=== PATIENT | male | born 1975 | race African-American/Black ===

== ENCOUNTER 2019-05-04 11:56 | Emergency (ER) | payer SELFPAY ==
[2019-05-04] MEDS ORDERED: METOPROLOL TARTRATE INJ 5 MG/5 ML VIAL IV ONE (12:14)
[2019-05-04] MEDS ORDERED: IBUPROFEN 200 MG TAB GT ONE (12:39)
[2019-05-04] MEDS ORDERED: SODIUM CHLORIDE 0.9% 1000ML 1,000 ML IVS ONE (12:41)
[2019-05-04] MEDS ORDERED: PHENYTOIN SODIUM INJ 1,000 MG in SODIUM CHLORIDE 0.9% 100ML 100 ML IVPB ONE (13:02)
--- NOTE | 2019-05-04 13:32 | RAD ---
EXAM: XR Chest, 1 View CLINICAL HISTORY: pna, vent TECHNIQUE: Frontal view of the chest. COMPARISON: No relevant prior studies available. FINDINGS: Limitations: None. Lungs: There is left lower lobe collapse. Pleural space: Small left pleural effusion present. No pneumothorax. Heart: Unremarkable. No cardiomegaly. Mediastinum: Unremarkable. Bones/joints: Unremarkable. Tubes, lines and devices: Tracheostomy terminates 7.3 cm above the ita. IMPRESSION: There is left lower lobe collapse. Consider mucous plugging and/or pneumonia. Electronically signed by: Denae Vazquez MD 05/04/2019 1:31 PM [facility]
[2019-05-04] MEDS ORDERED: SODIUM CHLORIDE 0.9% 100ML 100 ML IVPB ONE ×2 (13:48→15:20)
[2019-05-04] MEDS ORDERED: PHENYTOIN SODIUM INJ 250 MG/5 ML VIAL ONE (13:48)
[2019-05-04] MEDS ORDERED: FLUCONAZOLE 100 MG TAB GT ONE (13:55)
[2019-05-04] MEDS ORDERED: PIPERACILLIN/TAZOBACTAM 3.375 GM in SODIUM CHLORIDE 0.9% 100ML 100 ML IVPB ONE (14:19)
[2019-05-04 14:43] VITALS: TEMP 99.3; O2SAT 100
--- NOTE | 2019-05-04 14:43 | CT ---
PROCEDURE: CT Chest, Abdomen and Pelvis With Intravenous Contrast CLINICAL INDICATION: The patient is 44 years old and is Male; sepsis, vent pt , source uncertain, mild incr.. lft MAIN TECHNIQUE: Axial computed tomography images of the chest, abdomen and pelvis with intravenous contrast. Sagittal and coronal reformatted images were created and reviewed. This CT exam was performed using one or more of the following dose reduction techniques: automated exposure control, adjustment of the mA and/or kV according to patient size, and/or use of iterative reconstruction technique. COMPARISON: Chest x-ray from earlier today. FINDINGS: ARTIFACTS: Patient arm positioning results in beam hardening artifact which degrades image quality. CHEST: LUNGS: There is dense LEFT perihilar and lower lobe consolidation with air bronchograms and enhancement. This spares the lingula. Findings are compatible with pneumonia. On coronal image 108/156 of series 602 and axial image 6/92 of series 3, there is a filling defect within a medial RIGHT lower lobe pulmonary artery branch, likely a 3rd generation branch. Patchy linear atelectasis is identified within the medial RIGHT lower lobe. PLEURAL SPACE: Unremarkable. No significant effusion. No pneumothorax. HEART: Heart is shifted to the LEFT. No significant pericardial effusion. THYROID: Thyroid gland is unremarkable. ABDOMEN: LIVER: Hepatic steatosis is identified. No intrahepatic lesions are noted. GALLBLADDER AND BILE DUCTS: The gallbladder is contracted. No calcified stones. No ductal dilation. PANCREAS: Unremarkable. No ductal dilation. No discrete lesion. No acute leena-pancreatic inflammatory change. SPLEEN: Unremarkable. No splenomegaly. No splenic lesion noted. ADRENALS: Unremarkable. No mass. KIDNEYS AND URETERS: Unremarkable. No hydronephrosis. No solid mass. STOMACH AND BOWEL: There is an abundant amount of stool within the colonic lumen. No obstruction. No mucosal thickening. PELVIS: APPENDIX: The appendix is visualized and is normal in appearance. BLADDER: There is a Christensen catheter decompressing the urinary bladder. REPRODUCTIVE: The prostate gland is enlarged. CHEST, ABDOMEN and PELVIS: INTRAPERITONEAL SPACE: Unremarkable. No significant fluid collection. No free air. BONES/JOINTS: Unremarkable. No acute fracture. No dislocation. SOFT TISSUES: There is a small fat containing umbilical hernia noted. VASCULATURE: See above. LYMPH NODES: LEFT subcarinal lymphadenopathy noted with a 1.4 cm node identified. TUBES, LINES AND DEVICES: There is a tracheostomy tube in place. Percutaneous gastrostomy tube is in place. OTHER FINDINGS: The LEFT hemithorax is small. IMPRESSION: 1. There is dense LEFT perihilar and lower lobe consolidation with air bronchograms and enhancement. This spares the lingula. Findings are compatible with pneumonia. Prominent LEFT subcarinal node. 2. On coronal image 108/156 of series 602 and axial image 6/92 of series 3, there is a filling defect within a medial RIGHT lower lobe pulmonary artery branch, likely a 3rd generation branch. 3. No acute inflammatory process is identified in the abdomen or pelvis. Large amount of colonic stool. Electronically signed by: Balaji Daniel MD 05/04/2019 2:41 PM [employer]ORDER [employer]
[2019-05-04] MEDS ORDERED: ENOXAPARIN SODIUM 100 MG/ML SYG SUBCU ONE (14:53)
[2019-05-04] MEDS ORDERED: methylPREDNISolone SODIUM SUC 125 MG/2 ML VIAL IV ONE (15:10)
[2019-05-04] MEDS ORDERED: PIPERACILLIN/TAZOBACTAM 3.375 GM VIAL IVPB ONE (15:20)
--- NOTE | 2019-05-04 15:38 | ED.PDOC ---
History of Present Illness - General Chief Complaint: Fever Stated Complaint: fever Time Seen by Provider: 05/04/19 12:02 Source: EMS notes reviewed, family, correction records Exam Limitations: clinical condition - History of Present Illness Initial Comments: the patient is a 44-year-old male presenting to the emergency room secondary to fever, increased sputum production in his ET tube, increasing seizure frequency over the last few days. The patient has been recently being treated for a left lower lobe pneumonia with Levaquin, however the patient has been continuing to deteriorate. He has been on that medication approximately 10 days. The patient was febrile upon arrival here. The patient is having tremulous movements which could be construed as chills however family does report that sometimes these movements are actually has seizures. The patient himself is essentially noncommunicative. He does not have purposeful movements of his extremities. Heart rate is elevated into the 150s. He does appear to be oxygenating well on his current ventilator settings. He has been on a prophylactic Lovenox dose. He did receive some when necessary Ativan earlier in the day for a seizure. He also received 5 mg of Valium with EMS before arrival. Family is very helpful. Timing/Duration: unsure Severity: moderate Improving Factors: nothing Worsening Factors: nothing Allergies/Adverse Reactions: Allergies NO KNOWN ALLERGY Allergy (Verified 05/04/19 12:36) Review of Systems - Review of Systems Review of Systems: 05/04/19 15:38 unable to obtain review of systems due to patient's noncommunicative state. Family members have just driven in from out of town so they are unable to give any relevant information for a recent review of systems. By nursing report from the correction he has had increased seizure frequency. Unable to Obtain Due To: clinical condition Past Medical History (General) - Patient Medical History Hx Congestive Heart Failure: No Hx Hypertension: Yes - Social History Hx Tobacco Use: Yes - Activities of Daily Living [facility] (if applicable):: [facility] Family Medical History - Family History Mother Family History: Unknown Physical Exam - Physical Exam General Appearance: Alert, Other - he does have periods of tremulousness as indicated above. In between these episodes he does grimace and indicate displeasure with certain actions. Eye Exam: bilateral normal Ears, Nose, Throat: normal pharynx - ucous membranes are mildly dry. Neck: non-tender - no evidence of grimacing with palpation. Tracheostomy is in place. There is significant purulent secretions from the tracheostomy., supple Respiratory: no respiratory distress, no accessory muscle use, other - bilateral lower lobe rales. Cardiovascular/Chest: normal peripheral pulses, tachycardia - regular tachycardia around 150 bpm., other - trace edema to extremities from disuse. Peripheral Pulses: radial,right: 2+, radial,left: 2+ Gastrointestinal/Abdominal: non tender, soft, other - G-tube is in place. Rectal Exam: deferred Back Exam: no vertebral tenderness Extremity: normal range of motion - passive, no calf tenderness - as best can be assessed, normal capillary refill Neurologic: alert, other - difficult to assess otherwise. He does grimace to pain. Skin Exam: normal color Comments: Vital Signs - 24 hr 05/04/19 05/04/19 05/04/19 11:56 12:05 12:29 Temperature 100.4 F H Pulse Rate [ 155 H left brachial] Respiratory 24 23 Rate Respiratory 18 Rate [Volume Control Data] Blood Pressure 131/64 [left brachial] O2 Sat by Pulse 98 Oximetry 05/04/19 05/04/19 05/04/19 14:00 15:00 15:17 Temperature 99.3 F Pulse Rate [ 115 H 104 H left brachial] Respiratory 18 18 Rate Respiratory 18 Rate [Volume Control Data] Blood Pressure 130/80 121/86 [left brachial] O2 Sat by Pulse 100 100 Oximetry Progress - Progress Progress: 05/04/19 15:43 the patient is a 44-year-old -[place] male presenting to the emergency room with what appears to be sepsis. He has elevated white blood cell count of 22,000 with 15% bands, heart rate in the 150s and a fever. The source does appear to be very dense left lower lobe pneumonia that appears to be refractory to Levaquin. He is actually ventilating well on his current settings. The patient has responded positively to the IV fluids with his heart rate coming down to the 110s. He has also received a dose of Motrin for the fever. He has been started on vancomycin and Zosyn. blood and sputum cultures have been done. he has received a dose of IV Solu-Medrol. the patient also has a right midlung pulmonary embolus. He will need to have Dopplers performed at the receiving facility as we do not have ultrasound here. He has been given a treatment dose of Lovenox. He was on the prophylactic dose prior. The patient was also having increasing seizure frequency with his epilepsy. His Dilantin level was subtherapeutic. He has been loaded with Dilantin here and is no longer seizing. This will need to be followed of course. the patient also did have some yeast in his urine and has received a dose of Diflucan. Christensen catheter will remain in place. Family has been helpful and knowledgeable. All questions have been answered. transferring for specialty and higher level of care. Critical care time spent is 45 minutes excluding otherwise billable procedures. feliciano [email or web address] [phone] - Results/Orders Results/Orders: chest x-ray shows left lower lobe consolidation versuscollapse. CT scan of the chest abdomen and pelvis with IV contrast shows a small right mid lung pulmonary embolus. He does have dense consolidation of the left lower lobe. No definite bronchial plugging. See report for details. EKG shows sinus tachycardia versus atrial flutter at 154 bpm. Slow R-wave progression in anterior leads. No definitive ST segment or T-wave changes indicative of acute ischemia otherwise. Normal QT interval. Normal axis. Laboratory Tests 05/04/19 05/04/19 05/04/19 12:18 12:18 12:18 WBC 22.9 H* RBC 3.84 L Hgb 10.4 L Hct 32.6 L MCV 84.9 MCH 27.2 MCHC 32.0 L RDW 15.6 H Plt Count 403 H MPV 7.5 Absolute Neuts (auto) 18.00 H Absolute Lymphs (auto) 3.20 Absolute Monos (auto) 1.30 H Absolute Eos (auto) 0.20 Absolute Basos (auto) 0.10 Neutrophils % 79.0 H Neutrophils % (Manual) 70.0 Lymphocytes % 14.0 L Lymphocytes % (Manual) 15.0 Monocytes % 5.8 Monocytes % (Manual) 0.0 Eosinophils % 0.7 L Basophils % 0.5 Band Neutrophils 15.0 H* Eosinophils 0.0 Basophils 0.0 Platelet Estimate Increased PT 10.6 INR 1.06 PTT (SP) 27.8 Sodium 135 Potassium 3.7 Chloride 97 L Carbon Dioxide 25 Anion Gap 16.7 BUN 11 Creatinine 0.49 L BUN/Creatinine Ratio 22.4 H Random Glucose 120 H Serum Osmolality 270.7 L Lactic Acid Calcium 8.7 Magnesium 1.8 Total Bilirubin 0.4 AST 43 H ALT 84 H Alkaline Phosphatase 206 H Creatine Kinase 23 L CK-MB (CK-2) 0.5 CK-MB (CK-2) % Not Reportable Troponin I < 0.02 B-Natriuretic Peptide 7.3 Serum Total Protein 7.2 Albumin 2.5 L Globulin 4.7 H Albumin/Globulin Ratio 0.5 L TSH 1.34 Urine Color Urine Appearance Urine pH Ur Specific Grover Urine Protein Urine Glucose (UA) Urine Ketones Urine Blood Urine Nitrite Urine Bilirubin Urine Urobilinogen Ur Leukocyte Esterase Urine RBC Urine WBC Ur Epithelial Cells Urine Bacteria Urine Yeast Phenytoin 4.4 L 05/04/19 05/04/19 12:18 12:36 WBC RBC Hgb Hct MCV MCH MCHC RDW Plt Count MPV Absolute Neuts (auto) Absolute Lymphs (auto) Absolute Monos (auto) Absolute Eos (auto) Absolute Basos (auto) Neutrophils % Neutrophils % (Manual) Lymphocytes % Lymphocytes % (Manual) Monocytes % Monocytes % (Manual) Eosinophils % Basophils % Band Neutrophils Eosinophils Basophils Platelet Estimate PT INR PTT (SP) Sodium Potassium Chloride Carbon Dioxide Anion Gap BUN Creatinine BUN/Creatinine Ratio Random Glucose Serum Osmolality Lactic Acid 2.2 Calcium Magnesium Total Bilirubin AST ALT Alkaline Phosphatase Creatine Kinase CK-MB (CK-2) CK-MB (CK-2) % Troponin I B-Natriuretic Peptide Serum Total Protein Albumin Globulin Albumin/Globulin Ratio TSH Urine Color Yellow Urine Appearance Sl cloudy Urine pH 6.0 Ur Specific Grover 1.025 Urine Protein 30 Urine Glucose (UA) Negative Urine Ketones Negative Urine Blood Small H Urine Nitrite Negative Urine Bilirubin Negative Urine Urobilinogen 0.2 Ur Leukocyte Esterase Moderate H Urine RBC 0 Urine WBC 10-20 H Ur Epithelial Cells 0 Urine Bacteria Rare Urine Yeast 2+ budding Phenytoin Departure - Departure Clinical Impression: Ventilator associated pneumonia, Fungal colonization of urinary tract Sepsis Qualifiers: Sepsis type: sepsis due to unspecified organism Sepsis acute organ dysfunction status: with acute organ dysfunction Severe sepsis acute organ dysfunction type: unspecified Severe sepsis shock status: without septic shock Qualified Code(s): A41.9 - Sepsis, unspecified organism; R65.20 - Severe sepsis without septic shock Left lower lobe pneumonia Qualifiers: Pneumonia type: due to unspecified organism Qualified Code(s): J18.9 - Pneumonia, unspecified organism Epilepsy Qualifiers: Epilepsy type: other generalized Intractability: intractable Status epilepticus: without status epilepticus Qualified Code(s): G40.419 - Other generalized epilepsy and epileptic syndromes, intractable, without status epilepticus Disposition: Transfer to Hospital Departure Forms: ED Discharge - Pt. Copy, Patient Portal Self Enrollment Transfer to Outside Facility - Transfer Information Decision to Transfer Date: 05/04/19 Decision to Transfer Time: 15:30 Reason for Transfer: ICU Accepting Provider:: dr miles Accepting Facility: [facility]
[2019-05-04] MEDS ORDERED: VANCOMYCIN HCL INJ 1,000 MG, VANCOMYCIN HCL INJ 500 MG in SODIUM CHLORIDE 0.9% 250ML 25... IVPB ONE (15:49)
[2019-05-04] MEDS ORDERED: VANCOMYCIN HCL INJ 500 MG VIAL ONE (16:12)
[2019-05-04] MEDS ORDERED: VANCOMYCIN HCL INJ 1,000 MG VIAL IVPB ONE (16:12)
[2019-05-04] MEDS ORDERED: SODIUM CHLORIDE 0.9% 250ML 250 ML ONE (16:13)
[2019-05-04 18:34] VITALS: BP 126/75
== END 2019-05-04 17:00 | disposition short-term general hospital (02) ==
LOC: ER 11:56
DX: J95.851 Ventilator associated pneumonia (principal); R65.20 Severe sepsis without septic shock; B37.41 Candidal cystitis and urethritis; G40.419 Other generalized epilepsy and epileptic syndromes, intractable, without status epilepticus; I26.99 Other pulmonary embolism without acute cor pulmonale; I10 Essential (primary) hypertension; Z99.11 Dependence on respirator [ventilator] status; Z79.899 Other long term (current) drug therapy
CPT/HCPCS: 36415; 71045; 71260; 74177; 80053; 80177; 80185; 81001; 82550; 82553; 83605; 83735; 83880; 84443; 84484; 85025; 85610; 85730; 87040; 87086; 87205; 87502; 93005; 94002; 94640; J1650; J2543; J2930; J3370; J7030; J7050

== ENCOUNTER 2019-05-20 20:33 | Emergency (ER) | payer SELFPAY ==
[2019-05-20] MEDS ORDERED: SODIUM CHLORIDE 0.9% 1000ML 1,000 ML IVS ONE ×2 (20:59→22:38)
--- NOTE | 2019-05-20 21:10 | ED.PDOC ---
History of Present Illness - General Chief Complaint: Neuro Symptoms/Deficits Stated Complaint: Right hand tremors Time Seen by Provider: 05/20/19 20:58 Additional Information: The patient is a 44-year-old male who is ventilator dependent residing in a senior care who presents to the ED with chief complaint per senior care staff of possible seizure. By report patient was noted to have shaking to his right hand and this was perceived by a new nurse working on [employer] at the senior care as possible seizure activity and patient was sent to the ED. EMS who brought patient to the ED indicates that senior care staff told him that criss ceron is a bug going around at the senior care and several residents are ill with respiratory symptoms. History is otherwise unknown. - History of Present Illness Allergies/Adverse Reactions: Allergies NO KNOWN ALLERGY Allergy (Verified 05/04/19 12:36) Review of Systems - Review of Systems Unable to Obtain Due To: condition Past Medical History (General) - Patient Medical History Hx Seizures: Yes Hx Cardiac Disorders: Yes - tachycardia Hx Congestive Heart Failure: No Hx Hypertension: Yes - Vaccination History Immunizations Up to Date: Yes - Social History Hx Tobacco Use: Yes - Activities of Daily Living Intermediate/Assisted Living (if applicable):: [facility] - Triage Comment ED Triage Comment: Vent dependent pt who was sent for eval due to rt hand tremors. Family Medical History - Family History Mother Family History: Unknown Physical Exam - Physical Exam General Appearance: Ill Appearing, Other - patient is bedbound and ventilator dependent. Not interact with his environment. Eye Exam: bilateral other - patient's eyes do not track. No nystagmus is noted. ENT Exam: other - mucous membranes are dry Neck: other - patient tracheostomy is in patient's anterior neck. Respiratory: lungs clear, normal breath sounds, no respiratory distress Cardiovascular/Chest: no gallop, no JVD, no murmur, tachycardia Gastrointestinal/Abdominal: normal bowel sounds, non tender, soft Mental Status: other - patient's eyes are open. Patient is nonverbal and makes no noises. Patient does not react to deep sternal rub. Patient with perpetual grimacing movements to face. Patient does not move his extremities and his arms are extended and rigid. Skin Exam: warm/dry Progress - Progress Progress: 05/20/19 21:18 Differential diagnosis includes but is not limited to seizure activity, SVT, atrial fibrillation, sepsis. 05/20/19 21:18 Patient's history and exam are very confusing. Patient with rhythmic movement of face which may be status epilepticus. However nurse who is in the ED and pending for patient indicates that she knows patient well and says that his facial expressions are not unusual for him and she believes he is at his baseline. Patient is extremely tachycardic in the 150s and the nurse indicates that patient is always tachycardic when he comes to the ED with rates in the 130s to 150s. The rigidity of the patient's arms may be seizure activity but it also may be contractures in this bedbound senior care patient who gets very little physical therapy. Will give Ativan and perform a sepsis and cardiac workup and reassessed. 05/20/19 21:21 EKG read: sinus tachycardia rate 160, nl axis, nl QRS, nl ST segments, nl T waves. Negative STEMI. EKG read by Sadi Lincoln MD. Patient is not in atrial fibrillation and I will treat for SVT. 05/20/19 22:17 Patient had very transient response to adenosine. His heart rate went from 160s down to approximately 100 for a few beats and then went back up to 160. Will give Cardizem and reevaluate. 05/21/19 01:01 Patient's heart rate came down slightly to the 140s after Cardizem bolus. Patient's CTs show continued by basilar consolidation confirming that recurrent pneumonia is the source of patient's symptoms. His tachycardia is not from cardiac dysrhythmia but from sepsis. IV Zosyn and vancomycin has been given along with sepsis fluid bolus. patient's thyroid studies are normal and he is not suffering from thyroid storm. His d-dimer is elevated but his CT chest does not show evidence of PE. is now in the room and she indicates that patient was recently discharged from [facility] with a pneumonia. She requested patient be transferred back to [facility]. Patient is stable and medically clear for transfer when accepted. 05/21/19 01:[address] Holman, hospitalist at [facility], who accepts patient in transfer. Departure - Departure Clinical Impression: Severe sepsis without septic shock, Pneumonia, unspecified organism, Candidiasis UTI (urinary tract infection) Qualifiers: Urinary tract infection type: site unspecified Hematuria presence: without hematuria Qualified Code(s): N39.0 - Urinary tract infection, site not specified Disposition: Transfer to Hospital Condition: Fair Transfer to Outside Facility - Transfer Information Decision to Transfer Date: 05/21/19 Decision to Transfer Time: 01:04 Reason for Transfer: family request
[2019-05-20] MEDS ORDERED: ADENOSINE INJ 6 MG/2 ML SYG IV ONE ×2 (21:23→22:01)
--- NOTE | 2019-05-20 21:39 | RAD ---
EXAM: Chest,1 View HISTORY: Tachycardia COMPARISON: Chest one view 05/04/2019 CT chest 05/04/2019 TECHNIQUE: Chest one view portable AP supine FINDINGS: Patient is mildly leftward rotated. Heart size within normal limits. Mild bilateral perihilar interstitial lung prominence. Moderate-sized dense left lower lung field opacity reidentified. No significant pleural effusion or pneumothorax. No acute fracture. Tracheostomy tube in place. Right-sided port catheter tip overlies SVC/RA junction. IMPRESSION: 1. Moderate-sized dense left lower lung field opacity appears mildly less prominent. This may represent left basilar atelectasis/volume loss and/or consolidation. If not already performed, bronchoscopy may provide more information. 2. Mild bilateral perihilar interstitial lung prominence. Causes include asthma, bronchitis, interstitial infection, viral infection, and interstitial pulmonary edema. 3. Tracheostomy tube and right-sided port catheter remain in place. 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
[2019-05-20] MEDS ORDERED: PIPERACILLIN/TAZOBACTAM 3.375 GM in SODIUM CHLORIDE 0.9% 100ML 100 ML IVPB ONE (22:36)
[2019-05-20] MEDS ORDERED: FLUCONAZOLE IV 200 MG in PREMIX BAG 1 BAG IVPB ONE (22:37)
[2019-05-20] MEDS ORDERED: VANCOMYCIN HCL INJ 1,000 MG, VANCOMYCIN HCL INJ 500 MG in SODIUM CHLORIDE 0.9% 250ML 25... IVPB ONE (22:40)
[2019-05-20] MEDS ORDERED: PIPERACILLIN/TAZOBACTAM 3.375 GM VIAL IVPB ONE (23:05)
[2019-05-20] MEDS ORDERED: SODIUM CHLORIDE 0.9% 100ML 100 ML IVPB ONE (23:05)
--- NOTE | 2019-05-20 23:45 | CT ---
PROCEDURE: CT Abdomen/Pelvis w/Contrast (accession [id number]), CTA Chest (accession [id number]) CLINICAL HISTORY: 44 years Male sepsis TECHNIQUE: Contiguous axial images obtained through the chest during the rapid administration of intravenous contrast. Coronal, sagittal, and MIP reformatted images provided. Contiguous axial images acquired through the abdomen and pelvis after the administration of intravenous contrast. Coronal and sagittal reformatted images also provided. This CT exam was performed according to our departmental dose-optimization program, which includes one or more of the following dose reduction techniques: automated exposure control, adjustment of the mA and/or kV according to patient size, and/or use of iterative reconstruction technique. COMPARISON: Comparison is made with the prior examinations dated 05/04/2019 FINDINGS: Tracheostomy tube again noted. Evaluation of the pulmonary arteries is limited by patient motion. No visualized pulmonary embolus. Left perihilar and left lower lobe dense airspace infiltrates again noted. Dependent right lower lobe airspace infiltrate has progressed since the prior exam. No pleural effusions or pneumothorax. Stable shotty mediastinal lymph nodes. Stable cardiac size without pericardial effusion. No thoracic aortic aneurysm or dissection. The liver, biliary tree, gallbladder, pancreas, spleen, adrenal glands, and kidneys demonstrate no acute findings. Christensen catheter in the urinary bladder. Percutaneous gastrostomy again noted. Also again noted is mild to moderate diffuse colonic constipation. No bowel inflammation, obstruction, pneumatosis, free intraperitoneal air, abscess, or ascites. No abdominal aortic aneurysm or retroperitoneal hemorrhage. Small fat-containing periumbilical hernia. Extensive heterotopic ossification noted about both hips, particularly on the left. No acute fracture. IMPRESSION: No visualized pulmonary vessels however evaluation of the pulmonary arteries is limited by patient motion. Worsening bibasilar airspace infiltrates. Colonic constipation without bowel inflammation or obstruction. Heterotopic ossification about both hips. 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
[2019-05-20] MEDS ORDERED: FLUCONAZOLE IV 100 ML IVPB ONE (23:53)
[2019-05-21 00:03] VITALS: O2SAT 98
[2019-05-21] MEDS ORDERED: VANCOMYCIN HCL INJ 1,000 MG VIAL IVPB ONE (01:37)
[2019-05-21] MEDS ORDERED: SODIUM CHLORIDE 0.9% 250ML 250 ML ONE (01:38)
[2019-05-21] MEDS ORDERED: VANCOMYCIN HCL INJ 500 MG VIAL ONE (01:38)
[2019-05-21] MEDS ORDERED: ACETAMINOPHEN 500 MG TAB PO ONE (01:56)
[2019-05-21] MEDS ORDERED: ACETAMINOPHEN 500 MG TAB ONE (01:56)
[2019-05-21 02:10] VITALS: BP 100/71; TEMP 103
== END 2019-05-21 02:30 | disposition short-term general hospital (02) ==
LOC: ER 20:33
DX: R65.20 Severe sepsis without septic shock (principal); J18.9 Pneumonia, unspecified organism; N39.0 Urinary tract infection, site not specified; B37.9 Candidiasis, unspecified; R25.1 Tremor, unspecified; R00.0 Tachycardia, unspecified; R56.9 Unspecified convulsions; I10 Essential (primary) hypertension; Z99.11 Dependence on respirator [ventilator] status; Z74.01 Bed confinement status; Z87.891 Personal history of nicotine dependence
CPT/HCPCS: 71045; 71275; 74177; 80053; 80185; 81001; 83605; 84439; 84443; 84484; 85025; 85379; 87040; 87086; 87502; 93005; 94002; 94003; 94770; J0153; J1450; J2060; J2543; J3370; J7030; J7050

== ENCOUNTER → 2019-06-27 | Outpatient (CLI) | payer SELFPAY | LOC: GOCC 14:11 | PROVIDERS: ATTEND Internal Medicine | DX: R30.0 Dysuria (principal) ==

== ENCOUNTER 2019-07-10 18:09 | Emergency (ER) | payer SELFPAY ==
[2019-07-10] MEDS: IPRATROPIUM/ALBUTEROL 3 ML VIAL NEB ONE (18:37)
[2019-07-10] MEDS: ALBUTEROL SULFATE 2.5 MG/3 ML VIAL NEB ONE (18:37)
--- NOTE | 2019-07-10 18:37 | ED.PDOC ---
History of Present Illness - General Chief Complaint: Fever Stated Complaint: Fever Time Seen by Provider: 07/10/19 18:14 Source: RN notes reviewed, Vital Signs reviewed, EMS notes reviewed, halfway records Exam Limitations: other - Patient is comatose and I am unable to obtain a history of present illness or review of systems with the patient's input. - History of Present Illness Initial Comments: 44-year-old black male who is ventilator dependent and is at the halfway who presents from the halfway with complaints of fever and elevated white count. Patient had labs drawn a couple of weeks ago and had a white count of 19,000. Patient was started on antibiotics. Patient's condition has worsened over the ensuing time and now has a white count of 26,000. Further history or review of systems regarding this patient. Timing/Duration: 1 week Severity: moderate Improving Factors: nothing Worsening Factors: nothing Associated Symptoms: fever/chills Allergies/Adverse Reactions: Allergies NO KNOWN ALLERGY Allergy (Verified 05/04/19 12:36) Home Medications: Ambulatory Orders Enoxaparin Sodium [Lovenox] 40 mg SUBCU QD 05/21/19 Folic Acid 1 mg PO 05/21/19 Lansoprazole [Prevacid] 15 mg PO 05/21/19 Lorazepam 1 mg PO 05/21/19 Phenytoin Suspension [Dilantin Suspension] 0 mg 05/21/19 Sucralfate Suspension [Carafate Suspension] 1 gm PO 05/21/19 Thiamine HCl 100 mg PO 05/21/19 levETIRAcetam SUSPENSION [Keppra] 05/21/19 metFORMIN HCL [Glucophage] 500 mg PO 05/21/19 Review of Systems - Review of Systems Review of Systems: 07/10/19 18:37 Unable to obtain a review of second systems secondary to patient's being comatose. Past Medical History (General) - Patient Medical History Hx Seizures: Yes Hx Cardiac Disorders: Yes - Hx ME Hx Congestive Heart Failure: No Hx Hypertension: Yes Surgical History: other - Vaccination History Hx Influenza Vaccination: - Unknown Hx Pneumococcal Vaccination: - Unknown - Social History Hx Tobacco Use: Yes - Activities of Daily Living Long Term/Assisted Living (if applicable):: [facility] - Triage Comment ED Triage Comment: [facility] Family Medical History - Family History Mother Family History: Unknown Physical Exam - Physical Exam General Appearance: Ill Appearing, Obese, Unkempt, Well Developed, Well Hydrated, Well Nourished Ears, Nose, Throat: other Neck: limited range of motion, other - Patient with a trach in place Respiratory: chest non-tender, respiratory distress, decreased breath sounds, crackles - Right lower lobe, rhonchi - Diffusely throughout Cardiovascular/Chest: normal peripheral pulses, no murmur, tachycardia Gastrointestinal/Abdominal: normal bowel sounds, non tender, soft, other - Tube feeding in place Extremity: normal capillary refill, pedal edema Neurologic: disoriented x 3, other - Patient is comatose. Skin Exam: normal color, warm/dry, other - He is febrile. Lymphatic: no adenopathy Progress - Progress Progress: Differential diagnosis: Pneumonia, UTI, strep, influenza among others. 07/10/19 20:23 Cultures are pending. Work-up indicates a bilateral lower lobe pneumonia which is presumed to be healthcare acquired, UTI both bacterial and yeast. Plan on admission for IV antibiotics and Diflucan. Iraj Leary M.D. #[id number] - Results/Orders Results/Orders: 07/10/19 18:15 Sodium Chloride 0.9% 1000ML [Ns 1000 ml] 1,000 ml IVS .QD EKG STAT 07/10/19 18:16 Telemetry ONCE Pulse Ox Stat 07/10/19 19:00 EKG STAT 07/10/19 19:09 Mechanical Ventilation DAILY 07/10/19 19:16 SPUTUM CULTURE Stat 07/10/19 19:20 SPUTUM CULTURE Stat Urine Culture Stat 07/10/19 19:31 Arterial Blood Gas Stat 07/10/19 19:55 BLOOD CULTURE Stat 07/11/19 18:15 EKG STAT Laboratory Results - last 24 hr 07/10/19 07/10/19 07/10/19 19:00 19:00 19:00 WBC 25.2 H* RBC 4.02 L Hgb 10.6 L Hct 33.0 L MCV 82.2 MCH 26.5 L MCHC 32.2 L RDW 17.0 H Plt Count 611 H MPV 7.5 Absolute Neuts (auto) Not Reportable Absolute Lymphs (auto) Not Reportable Absolute Monos (auto) Not Reportable Absolute Eos (auto) Not Reportable Neutrophils % Not Reportable Neutrophils % (Manual) 88.0 H Lymphocytes % Not Reportable Lymphocytes % (Manual) 8.0 Monocytes % Not Reportable Monocytes % (Manual) 3.0 Eosinophils % Not Reportable Basophils % Not Reportable Band Neutrophils 1.0 Hypochromia 1+ Platelet Estimate Increased Anisocytosis 1+ Sodium 135 Potassium 3.7 Chloride 98 L Carbon Dioxide 24 Anion Gap 16.7 BUN 11 Creatinine < 0.40 L BUN/Creatinine Ratio 27.0 H Random Glucose 119 H Serum Osmolality 270.6 L Lactic Acid 1.2 Calcium 9.3 Total Bilirubin 0.4 AST 30 ALT 69 H Alkaline Phosphatase 203 H Serum Total Protein 8.8 H Albumin 3.1 L Globulin 5.7 H Albumin/Globulin Ratio 0.5 L Urine Color Urine Appearance Urine pH Ur Specific [place] Urine Protein Urine Glucose (UA) Urine Ketones Urine Blood Urine Nitrite Urine Bilirubin Urine Urobilinogen Ur Leukocyte Esterase Urine RBC Urine WBC Ur Epithelial Cells Other Crystals Urine Bacteria Urine Mucus Urine Yeast 07/10/19 19:20 WBC RBC Hgb Hct MCV MCH MCHC RDW Plt Count MPV Absolute Neuts (auto) Absolute Lymphs (auto) Absolute Monos (auto) Absolute Eos (auto) Neutrophils % Neutrophils % (Manual) Lymphocytes % Lymphocytes % (Manual) Monocytes % Monocytes % (Manual) Eosinophils % Basophils % Band Neutrophils Hypochromia Platelet Estimate Anisocytosis Sodium Potassium Chloride Carbon Dioxide Anion Gap BUN Creatinine BUN/Creatinine Ratio Random Glucose Serum Osmolality Lactic Acid Calcium Total Bilirubin AST ALT Alkaline Phosphatase Serum Total Protein Albumin Globulin Albumin/Globulin Ratio Urine Color Dk yellow Urine Appearance Sl cloudy Urine pH 7.0 Ur Specific [place] 1.025 Urine Protein 30 Urine Glucose (UA) Negative Urine Ketones Negative Urine Blood Small H Urine Nitrite Negative Urine Bilirubin Negative Urine Urobilinogen 0.2 Ur Leukocyte Esterase Small H Urine RBC 3-5 H Urine WBC >50 H Ur Epithelial Cells 0-1 Other Crystals 1+ Urine Bacteria 1+ Urine Mucus Small Urine Yeast 3+ budding EXAM: Chest,1 View CLINICAL INDICATION: Fever COMPARISON: 05/20/2019 FINDINGS: A single view of the chest was obtained. The heart size is normal. The pulmonary vascularity is unremarkable. There is a tracheostomy. A right IJ port is noted in the SVC. Mild bibasilar infiltrates are noted right greater than left which appear worse than the previous study. The lungs are otherwise clear. IMPRESSION: Bibasilar infiltrates, suspicious for pneumonia. Electronically signed by: Suman Sebastian MD 07/10/2019 6:37 PM CURATOR EKG performed 10 July 2019 at 1904 hrs.: Sinus tachycardia 136 bpm, normal axis deviation, no ST or T wave changes, otherwise normal EKG. No comparison EKG available. Departure - Departure Clinical Impression: Yeast UTI, Pneumonia, unspecified organism Pneumonia Qualifiers: Pneumonia type: due to unspecified organism Laterality: bilateral Lung location: lower lobe of lung Qualified Code(s): J18.9 - Pneumonia, unspecified organism Urinary tract infection associated with catheterization of urinary tract Qualifiers: Indwelling urinary catheter type: indwelling urethral catheter Encounter type: initial encounter Qualified Code(s): T83.511A - Infection and inflammatory reaction due to indwelling urethral catheter, initial encounter Time of Disposition: 19:45 Disposition: Transfer to Hospital Condition: Fair Referrals: KEITH PAPPAS [Primary Care Provider] - 1-2 Weeks Home Medications: Ambulatory Orders Enoxaparin Sodium [Lovenox] 40 mg SUBCU QD 05/21/19 Folic Acid 1 mg PO 05/21/19 Lansoprazole [Prevacid] 15 mg PO 05/21/19 Lorazepam 1 mg PO 05/21/19 Phenytoin Suspension [Dilantin Suspension] 0 mg 05/21/19 Sucralfate Suspension [Carafate Suspension] 1 gm PO 05/21/19 Thiamine HCl 100 mg PO 05/21/19 levETIRAcetam SUSPENSION [Keppra] 05/21/19 metFORMIN HCL [Glucophage] 500 mg PO 05/21/19 Transfer to Outside Facility - Transfer Information Decision to Transfer Date: 07/10/19 Decision to Transfer Time: 19:30 Reason for Transfer: specialized care not available Accepting Provider:: Dr. Hahn Accepting Facility: [facility]
[2019-07-10] MEDS: SODIUM CHLORIDE 0.9% 1000ML 1,000 ML IVS PRN (18:59)
[2019-07-10] MEDS ORDERED: SODIUM CHL 0.9% 50ML MIN-BAG+ 50 ML IVPB ONE (19:00)
[2019-07-10] MEDS ORDERED: CEFEPIME 2 GM VIAL ONE (19:00)
[2019-07-10] MEDS: CEFEPIME 2 GM in SODIUM CHL 0.9% 50ML MIN-BAG+ 50 ML IVPB ONE (19:00)
[2019-07-10 19:31] VITALS: O2SAT 99
[2019-07-10] MEDS: levoFLOXacin 750MG IV 750 MG in PREMIX BAG 1 BAG IVPB ONE (21:00)
[2019-07-10 21:47] VITALS: BP 108/52; TEMP 101.2
== END 2019-07-10 21:10 | disposition short-term general hospital (02) ==
LOC: ER 18:09
DX: J18.9 Pneumonia, unspecified organism (principal); T83.511A Infection and inflammatory reaction due to indwelling urethral catheter, initial encounter; B37.49 Other urogenital candidiasis; R40.20 Unspecified coma; R56.9 Unspecified convulsions; I25.2 Old myocardial infarction; I10 Essential (primary) hypertension; Z79.899 Other long term (current) drug therapy; Z79.84 Long term (current) use of oral hypoglycemic drugs; Z93.1 Gastrostomy status; Z93.0 Tracheostomy status
CPT/HCPCS: 36415; 36600; 71045; 80053; 81001; 82803; 82805; 83605; 85025; 87040; 87070; 87086; 87205; 94002; 94003; 94640; 94760; J0692; J1956; J7030; J7050; J7611; J7620

== ENCOUNTER → 2019-08-10 | Outpatient (CLI) | payer MEDICAID | DX: J18.9 Pneumonia, unspecified organism (principal) ==

== ENCOUNTER → 2019-08-22 | Outpatient (CLI) | payer MEDICAID | LOC: GOCC 11:24 | PROVIDERS: ATTEND Internal Medicine | DX: R50.9 Fever, unspecified (principal) ==

== ENCOUNTER → 2019-08-28 | Outpatient (CLI) | payer MEDICAID | LOC: GOCC 09:43 | PROVIDERS: ATTEND Internal Medicine | DX: D72.829 Elevated white blood cell count, unspecified (principal); J18.9 Pneumonia, unspecified organism ==

== ENCOUNTER 2019-10-25 05:55 | Emergency (ER) | payer MEDICAID, OTHER ==
[2019-10-25] MEDS ORDERED: SODIUM CHLORIDE 0.9% (FLUSH) 10 ML SYG IV PRN (06:16)
[2019-10-25] MEDS ORDERED: SODIUM CHLORIDE 0.9% 1000ML 1,000 ML IVS ONE ×2 (06:16→06:39)
[2019-10-25] MEDS ORDERED: levoFLOXacin 500MG IV 500 MG in PREMIX BAG 1 BAG IVPB ONE (06:16)
--- NOTE | 2019-10-25 06:28 | ED.PDOC ---
History of Present Illness - General Source: RN notes reviewed, Vital Signs reviewed, EMS notes reviewed, EMS, [facility] records, old records Exam Limitations: physical impairment - History of Present Illness Initial Comments: This is a 44-year-old male with history of chronic respiratory failure, vent dependent, history of seizure disorder, type 2 diabetes, multiple admissions over the past 6 months for sepsis, presenting via EMS from [facility] to the emergency department with elevated blood pressures, tachycardia, low sats at his [facility]. Per EMS he has chronic tachycardia, normal heart rate is in the 120s to 130s. His BP on arrival was 90s over 60s. Patient afebrile. Patient is nonverbal, all history was obtained from EMS and from [facility] records. <Chintan Craven - Last Filed: 10/25/19 07:04> <Feliciano Veloz - Last Filed: 10/25/19 10:17> - General Time Seen by Provider: 10/25/19 06:10 - History of Present Illness Allergies/Adverse Reactions: Allergies NO KNOWN ALLERGY Allergy (Verified 05/04/19 12:36) Home Medications: Ambulatory Orders Enoxaparin Sodium [Lovenox] 40 mg SUBCU QD 05/21/19 Folic Acid 1 mg PEG DAILY 05/21/19 Lorazepam 1 mg PEG Q4H 05/21/19 Phenytoin Suspension [Dilantin Suspension] 12 ml PEG BID 05/21/19 Sucralfate Suspension [Carafate Suspension] 1 gm PEG QID 05/21/19 metFORMIN HCL [Glucophage] 500 mg PEG DAILY 05/21/19 Acetaminophen [Acetaminophen Extra Stren] 1,000 mg PEG Q12H 10/25/19 Albuterol Sulfate Nebs [Proventil Nebs] 2.5 mg INH Q4H PRN 10/25/19 Ascorbic Acid [Vitamin C] 500 mg PEG DAILY 10/25/19 Cetirizine HCl [Zyrtec Allergy] 10 mg PEG DAILY 10/25/19 Cholestyramine Powder [Questran Powder] 4 gm PEG TID 10/25/19 Cyanocobalamin [B-12] 1,000 mcg PEG DAILY 10/25/19 Dextran 70-Hypromellose [Artificial Tears 0.1-0.3 %] 1 samuel BOTH_EYES BID 10/25/19 Dextran 70-Hypromellose [Artificial Tears 0.1-0.3 %] 1 samuel BOTH_EYES Q4H PRN 10/25/19 Emollient [Aquaphor] 1 oin EX .QSHIFT 10/25/19 Ergocalciferol [Vitamin D] 50,000 unit PEG MONTHLY 10/25/19 Gabapentin 100 mg PEG Q8H PRN 10/25/19 Ipratropium/Albuterol [Duoneb] 3 ml NEB Q6H 10/25/19 Metoprolol Tartrate 25 mg PEG Q8H 10/25/19 [place]-3 Fatty Acids [Fish Oil 500 mg] 1 cap PEG DAILY 10/25/19 Pantoprazole Suspension [Protonix] 40 mg PEG DAILY 10/25/19 Thiamine HCl 100 mg PEG DAILY 10/25/19 guaiFENesin 100 MG/5 ML [Robitussin] 30 ml PEG BID 10/25/19 Review of Systems - Review of Systems Unable to Obtain Due To: clinical condition <Chintan Craven - Last Filed: 10/25/19 07:04> Past Medical History (General) - Patient Medical History Hx Seizures: Yes Hx Asthma: - Acute Resp failure, vent dependent Hx Cardiac Disorders: Yes - Hx VT Hx Congestive Heart Failure: No Hx Hypertension: Yes Hx Diabetes: No - Vaccination History Hx Tetanus, Diphtheria Vaccination: No Hx Influenza Vaccination: - Unknown Hx Pneumococcal Vaccination: - Unknown - Social History Hx Tobacco Use: Yes Hx Alcohol Use: Yes <Chintan Craven - Last Filed: 10/25/19 07:04> Family Medical History - Family History Mother Family History: Unknown <Chintan Craven - Last Filed: 10/25/19 07:04> Physical Exam - Physical Exam General Appearance: Frail, Ill Appearing, Other Eye Exam: bilateral normal Ears, Nose, Throat: normal ENT inspection, other - Tracheostomy in place, stoma clean, dry, intact Respiratory: chest non-tender, normal breath sounds, no respiratory distress, no accessory muscle use, crackles Cardiovascular/Chest: normal peripheral pulses, regular rate, rhythm, no edema, no gallop, no JVD, tachycardia, other - Indwelling port right anterior chest wa ll Peripheral Pulses: dorsalis pedis,right: 2+, dorsalis pedis,left: 2+, posterior tibialis,right: 2+, posterior tibialis,left: 2+ Gastrointestinal/Abdominal: non tender, soft, other - PEG tube in the left upper quadrant Extremity: non-tender, normal inspection, no pedal edema Neurologic: other - Nonverbal, no response to painful stimuli Skin Exam: normal color, warm/dry <Chintan Craven - Last Filed: 10/25/19 07:04> Progress - Progress Progress: 10/25/19 06:31 Old records reviewed. Multiple ED visits over the last 6 months, multiple diagnoses of sepsis. He was last seen in July, and transferred to [facility]. Patient is tachycardic and borderline hypotensive in the ED. Given his initial vital signs I am concerned about possible severe sepsis. Will initiate sepsis work-up with fluid bolus, antibiotics, serial lactates, blood cultures 10/25/19 06:47 D-dimer elevated at 1180. CTA chest ordered. ABG: pH 7.51/pO2 100/pCO2 34.9/bicarb 28.1/BE 5 10/25/19 07:[address] Veloz. Reviewed labs, imaging available up to this point. He will assume further care. - Results/Orders Results/Orders: EKG reviewed personally by Dr. Craven at 6:31 AM. Sinus tach, 138, normal axis, normal intervals, nonspecific ST and T wave changes. Chest x-ray reviewed personally by Dr. Craven at 6:28 AM. There is increased h aziness in the right upper lobe, possible new infiltrate, Lower lobe infiltrate on the right improved from previous CHEST, ONE VIEW XR CLINICAL HISTORY: tachycardia, vent dependent COMPARISON: 08/10/2019 TECHNIQUE: AP Chest. FINDINGS: Heart is normal in size. Normal cardiomediastinal contours. There is left lower lobe consolidation and/or atelectasis. Right basilar aeration has improved. Minimal residual right lower lobe infiltrates. Tracheostomy and right internal jugular Mediport appear stable. Unremarkable soft tissues. Right shoulder osteoarthritis noted. IMPRESSION: 1. Improving right lower lobe infiltrates. Medial left lower lobe consolidation/atelectasis persists. Electronically signed by: Pam Márquez DO 10/25/2019 6:36 AM CDT <Chintan Craven - Last Filed: 10/25/19 07:04> - Progress Progress: 10/25/19 10:12 The patient is a 44-year-old -[place] male presenting to the ER via EMS secondary to what was reported as hypertension and hypoxia at the long-term care vent facility he was at. However upon arrival here he was having no significant difficulty with ventilation or oxygenation and was actually mildly hypotensive. It appears that the patient is septic. White blood cell count is 30,000 a lactic acid was only 1.4. He was tachycardic in the 140s with a sinus tachycardia and systolic blood pressures here have ranged from the 80s to low 90s. The patient does have an obvious urinary tract infection and also has small right upper lobe and left upper lobe infiltrate consistent with pneumonia that is likely new. The patient has grown out Pseudomonas in the past from his sputum and also significant fungal pathologies from his urine in the past. He does have a chronic indwelling catheter. Blood pressure has improved after a couple of liters of IV fluids here. He has received potassium secondary to the hypokalemia found. He is also received a dose of Solu-Medrol here. He was placed on Rocephin and Levaquin before previous cultures were able to be found. Due to the history of Pseudomonas he is additionally being given a dose of Zosyn here on top of the Levaquin and Rocephin. He was also given a dose of IV Diflucan. Blood pressures improved, so the patient has not yet actually been started on Levophed. The patient does have mild breakdown over the right sided sacral area that will need to be followed. Additionally the patient's G-tube does not appear to be working. He will need to have this replaced. We do not have a G-tube at that size here at the facility. Transferring for higher level of care and further critical care management. Critical care time spent on this patient in total management is 50 minutes. feliciano veloz [id number] - Results/Orders Results/Orders: Laboratory Tests 10/25/19 10/25/19 10/25/19 06:09 06:13 06:13 WBC RBC Hgb Hct MCV MCH MCHC RDW Plt Count MPV Absolute Neuts (auto) Absolute Lymphs (auto) Absolute Monos (auto) Absolute Eos (auto) Absolute Basos (auto) Neutrophils % Neutrophils % (Manual) Lymphocytes % Lymphocytes % (Manual) Monocytes % Monocytes % (Manual) Eosinophils % Basophils % Band Neutrophils Platelet Estimate Normal RBC Morphology PT 10.9 INR 1.10 PTT (SP) 26.3 D-Dimer, Quantitative 1180 H* pCO2 pO2 HCO3 ABG pH ABG O2 Saturation ABG Base Excess ABG Deoxyhemoglobin Oxyhemoglobin % Carboxyhemoglobin % Methemoglobin % Sat Calc Total Hemoglobin Sodium 132 L Potassium 2.8 L Chloride 94 L Carbon Dioxide 25 Anion Gap 15.8 BUN 13 Creatinine 0.42 L BUN/Creatinine Ratio 31.0 H Random Glucose 155 H Serum Osmolality 267.8 L Lactic Acid Calcium 8.8 Total Bilirubin 0.6 AST 24 ALT 35 Alkaline Phosphatase 233 H Creatine Kinase 154 CK-MB (CK-2) 2.1 CK-MB (CK-2) % Not Reportable Troponin I < 0.02 B-Natriuretic Peptide Serum Total Protein 7.9 Albumin 2.7 L Globulin 5.2 H Albumin/Globulin Ratio 0.5 L Urine Color Yellow Urine Appearance Cloudy Urine pH 5.5 Ur Specific [place] 1.025 Urine Protein >=300 H Urine Glucose (UA) Negative Urine Ketones Trace Urine Blood Moderate H Urine Nitrite Positive H Urine Bilirubin Small H Urine Urobilinogen 0.2 Ur Leukocyte Esterase Large H Urine RBC Obscured by wbc's H Urine WBC Tntc H Ur Epithelial Cells 0 Urine Bacteria 1+ Phenytoin 10/25/19 10/25/19 10/25/19 06:15 06:15 06:15 WBC 30.3 H* RBC 3.84 L Hgb 9.9 L Hct 30.8 L MCV 80.3 MCH 25.9 L MCHC 32.2 L RDW 19.3 H Plt Count 489 H MPV 7.6 Absolute Neuts (auto) 28.40 H Absolute Lymphs (auto) 1.10 Absolute Monos (auto) 0.60 Absolute Eos (auto) 0.10 Absolute Basos (auto) 0.10 Neutrophils % 93.7 H Neutrophils % (Manual) 89.0 H Lymphocytes % 3.6 L Lymphocytes % (Manual) 5.0 Monocytes % 2.1 Monocytes % (Manual) 0.0 Eosinophils % 0.4 L Basophils % 0.2 Band Neutrophils 6.0 H Platelet Estimate Increased Normal RBC Morphology 1+aniso PT INR PTT (SP) D-Dimer, Quantitative pCO2 pO2 HCO3 ABG pH ABG O2 Saturation ABG Base Excess ABG Deoxyhemoglobin Oxyhemoglobin % Carboxyhemoglobin % Methemoglobin % Sat Calc Total Hemoglobin Sodium Potassium Chloride Carbon Dioxide Anion Gap BUN Creatinine BUN/Creatinine Ratio Random Glucose Serum Osmolality Lactic Acid 1.4 Calcium Total Bilirubin AST ALT Alkaline Phosphatase Creatine Kinase CK-MB (CK-2) CK-MB (CK-2) % Troponin I B-Natriuretic Peptide Serum Total Protein Albumin Globulin Albumin/Globulin Ratio Urine Color Urine Appearance Urine pH Ur Specific [place] Urine Protein Urine Glucose (UA) Urine Ketones Urine Blood Urine Nitrite Urine Bilirubin Urine Urobilinogen Ur Leukocyte Esterase Urine RBC Urine WBC Ur Epithelial Cells Urine Bacteria Phenytoin 4.6 L 10/25/19 10/25/19 10/25/19 06:16 06:43 09:05 WBC RBC Hgb Hct MCV MCH MCHC RDW Plt Count MPV Absolute Neuts (auto) Absolute Lymphs (auto) Absolute Monos (auto) Absolute Eos (auto) Absolute Basos (auto) Neutrophils % Neutrophils % (Manual) Lymphocytes % Lymphocytes % (Manual) Monocytes % Monocytes % (Manual) Eosinophils % Basophils % Band Neutrophils Platelet Estimate Normal RBC Morphology PT INR PTT (SP) D-Dimer, Quantitative pCO2 35 pO2 100 HCO3 28.1 ABG pH 7.514 H ABG O2 Saturation 98.6 ABG Base Excess 5.0 ABG Deoxyhemoglobin 1.4 Oxyhemoglobin % 97.3 Carboxyhemoglobin % 0.7 Methemoglobin % Sat 0.6 Calc Total Hemoglobin 9.8 L Sodium Potassium Chloride Carbon Dioxide Anion Gap BUN Creatinine BUN/Creatinine Ratio Random Glucose Serum Osmolality Lactic Acid 1.1 Calcium Total Bilirubin AST ALT Alkaline Phosphatase Creatine Kinase CK-MB (CK-2) CK-MB (CK-2) % Troponin I B-Natriuretic Peptide 6.2 Serum Total Protein Albumin Globulin Albumin/Globulin Ratio Urine Color Urine Appearance Urine pH Ur Specific [place] Urine Protein Urine Glucose (UA) Urine Ketones Urine Blood Urine Nitrite Urine Bilirubin Urine Urobilinogen Ur Leukocyte Esterase Urine RBC Urine WBC Ur Epithelial Cells Urine Bacteria Phenytoin CT of the chest shows chronic lower lobe infiltrates but newer right upper and left upper lobe infiltrates. CT scan of the abdomen pelvis does show significant constipation. Chronic changes otherwise. See report for details. Initial EKG patient was most tachycardia 138 bpm. Normal axis. Normal R wave progression. No acute ST segment changes obvious for ischemia. Borderline QT interval. <Feliciano Veloz - Last Filed: 10/25/19 10:17> Departure <Chintan Craven - Last Filed: 10/25/19 07:04> <Feliciano Veloz - Last Filed: 10/25/19 10:17> - Departure Clinical Impression: Hypokalemia Sepsis Qualifiers: Sepsis type: sepsis due to unspecified organism Sepsis acute organ dysfunction status: without acute organ dysfunction Qualified Code(s): A41.9 - Sepsis, unspecified organism Chronic respiratory failure Qualifiers: Respiratory failure complication: unspecified whether with hypoxia or hypercapnia Qualified Code(s): J96.10 - Chronic respiratory failure, unspecified whether with hypoxia or hypercapnia Urinary tract infection associated with catheterization of urinary tract Qualifiers: Indwelling urinary catheter type: indwelling urethral catheter Encounter type: initial encounter Qualified Code(s): T83.511A - Infection and inflammatory reaction due to indwelling urethral catheter, initial encounter; N39.0 - Urinary tract infection, site not specified Disposition: Transfer to Hospital Referrals: KEITH PAPPAS [Primary Care Provider] - 1-2 Weeks Home Medications: Ambulatory Orders Enoxaparin Sodium [Lovenox] 40 mg SUBCU QD 05/21/19 Folic Acid 1 mg PEG DAILY 05/21/19 Lorazepam 1 mg PEG Q4H 05/21/19 Phenytoin Suspension [Dilantin Suspension] 12 ml PEG BID 05/21/19 Sucralfate Suspension [Carafate Suspension] 1 gm PEG QID 05/21/19 metFORMIN HCL [Glucophage] 500 mg PEG DAILY 05/21/19 Acetaminophen [Acetaminophen Extra Stren] 1,000 mg PEG Q12H 10/25/19 Albuterol Sulfate Nebs [Proventil Nebs] 2.5 mg INH Q4H PRN 10/25/19 Ascorbic Acid [Vitamin C] 500 mg PEG DAILY 10/25/19 Cetirizine HCl [Zyrtec Allergy] 10 mg PEG DAILY 10/25/19 Cholestyramine Powder [Questran Powder] 4 gm PEG TID 10/25/19 Cyanocobalamin [B-12] 1,000 mcg PEG DAILY 10/25/19 Dextran 70-Hypromellose [Artificial Tears 0.1-0.3 %] 1 samuel BOTH_EYES BID 10/25/19 Dextran 70-Hypromellose [Artificial Tears 0.1-0.3 %] 1 samuel BOTH_EYES Q4H PRN 10/25/19 Emollient [Aquaphor] 1 oin EX .QSHIFT 10/25/19 Ergocalciferol [Vitamin D] 50,000 unit PEG MONTHLY 10/25/19 Gabapentin 100 mg PEG Q8H PRN 10/25/19 Ipratropium/Albuterol [Duoneb] 3 ml NEB Q6H 10/25/19 Metoprolol Tartrate 25 mg PEG Q8H 10/25/19 [place]-3 Fatty Acids [Fish Oil 500 mg] 1 cap PEG DAILY 10/25/19 Pantoprazole Suspension [Protonix] 40 mg PEG DAILY 10/25/19 Thiamine HCl 100 mg PEG DAILY 10/25/19 guaiFENesin 100 MG/5 ML [Robitussin] 30 ml PEG BID 10/25/19 Transfer to Outside Facility - Transfer Information Decision to Transfer Date: 10/25/19 Decision to Transfer Time: 10:17 Reason for Transfer: ICU Accepting Provider:: dr raza Accepting Facility: [facility] <Feliciano Veloz - Last Filed: 10/25/19 10:17>
[2019-10-25] MEDS ORDERED: levoFLOXacin 500MG IV 100 ML IVPB ONE (06:29)
[2019-10-25] MEDS ORDERED: cefTRIAXone SODIUM 1 GM in SODIUM CHL 0.9% 50ML MIN-BAG+ 50 ML IVPB ONE (06:37)
--- NOTE | 2019-10-25 06:37 | RAD ---
CHEST, ONE VIEW XR CLINICAL HISTORY: tachycardia, vent dependent COMPARISON: 08/10/2019 TECHNIQUE: AP Chest. FINDINGS: Heart is normal in size. Normal cardiomediastinal contours. There is left lower lobe consolidation and/or atelectasis. Right basilar aeration has improved. Minimal residual right lower lobe infiltrates. Tracheostomy and right internal jugular Mediport appear stable. Unremarkable soft tissues. Right shoulder osteoarthritis noted. IMPRESSION: 1. Improving right lower lobe infiltrates. Medial left lower lobe consolidation/atelectasis persists. Electronically signed by: Pam Márquez DO 10/25/2019 6:36 AM CDT
[2019-10-25] MEDS ORDERED: KCL 40 MEQ/WATER FOR INJ 100ML 40 MEQ in PREMIX BAG 1 BAG IVPB ONE (06:42)
[2019-10-25] MEDS ORDERED: KCL 40 MEQ/WATER FOR INJ 100ML 100 ML IVPB ONE (07:19)
[2019-10-25] MEDS ORDERED: FLUCONAZOLE 150 MG TAB PO ONE (07:35)
[2019-10-25] MEDS ORDERED: FLUCONAZOLE 100 MG TAB ONE (08:34)
[2019-10-25] MEDS ORDERED: NOREPINEPHRINE BITARTRATE 4 MG/4 ML VIAL IVPB ONE (09:34)
[2019-10-25] MEDS ORDERED: DEXTROSE 5% 250ML 250 ML ONE (09:34)
[2019-10-25] MEDS ORDERED: SODIUM CHLORIDE 0.9% 1000ML 1,000 ML IVS PRN ×2 (09:36→09:38)
[2019-10-25] MEDS ORDERED: methylPREDNISolone SODIUM SUC 125 MG/2 ML VIAL IV ONE (09:38)
--- NOTE | 2019-10-25 09:44 | CT ---
PROCEDURE: CT Angiography Chest and CT Abdomen and Pelvis With Intravenous Contrast CLINICAL INDICATION: The patient is 44 years old and is Male; sepsis, uti MAIN TECHNIQUE: Total exam DLP is 2499.08 mGycm. Axial computed tomographic angiography images of the chest and axial computed tomography images of the abdomen and pelvis with intravenous contrast. Sagittal and coronal reformatted images were created and reviewed. This CT exam was performed using one or more of the following dose reduction techniques: automated exposure control, adjustment of the mA and/or kV according to patient size, and/or use of iterative reconstruction technique. MIP reconstructed images were created and reviewed. COMPARISON: CT abdomen and pelvis from 08/03/2019. CTA chest from 05/20/2019. FINDINGS: ARTIFACTS: Patient arm positioning results in beam hardening artifact which degrades image quality. CHEST: AORTA: No acute abnormality identified. No aortic aneurysm. No dissection. PULMONARY ARTERIES: There is no evidence of pulmonary artery embolus. The contrast bolus is well timed for this evaluation. GREAT VESSELS OF AORTIC ARCH: Great vessels are unremarkable in appearance. No dissection. No arterial occlusion or significant stenosis. LUNGS: Patchy inflammatory opacity identified in the RIGHT upper lobe posteriorly adjacent to the major fissure. Scattered subpleural LEFT upper lobe posterior patchy opacity also noted. These could be areas of aspiration pneumonia. There is bibasilar consolidation dependently. This has a chronic appearance and is unchanged, likely from chronic illness and ventilatory support. PLEURAL SPACE: No pleural effusions identified. No pneumothorax. HEART: No pericardial effusion is identified. Heart is top normal in size. THYROID: The thyroid gland is unremarkable. ABDOMEN: LIVER: Unremarkable. No mass. GALLBLADDER AND BILE DUCTS: Unremarkable. No calcified stones. No ductal dilation. PANCREAS: Unremarkable. No ductal dilation. No mass. SPLEEN: Unremarkable. No splenomegaly. ADRENALS: Unremarkable. No mass. KIDNEYS AND URETERS: Multiple punctate nonobstructing RIGHT renal calculi noted in the upper and lower poles. There are also stable subcentimeter calculi within the upper and lower poles of the LEFT kidney. They are subcentimeter in size and stable. No hydronephrosis. No solid mass. STOMACH AND BOWEL: There is a large stool ball in the rectum distending the rectosigmoid to 7 cm in size. No evidence of inflammatory stranding to suggest colitis. Strongly suspect severe constipation, stable from the prior study. There is an abundant amount of stool within the colonic lumen. PELVIS: APPENDIX: The appendix is visualized and is normal in appearance. BLADDER: There is a Christensen catheter decompressing the urinary bladder. REPRODUCTIVE: Unremarkable as visualized. CHEST, ABDOMEN and PELVIS: INTRAPERITONEAL SPACE: Unremarkable. No significant fluid collection. No free air. BONES/JOINTS: There is chronic deformity of the LEFT hip with extensive heterotopic ossification around the greater trochanter and extending upward adjacent to the iliac bone. Chronic deformity of the RIGHT greater than LEFT humeral head with heterotopic ossification. This could be posttraumatic. There is an old fracture of the distal LEFT clavicle. There is fracture of the RIGHT 1st rib and a pseudoarticulation with heterotopic ossification to the clavicular head. There is vertebral plana at T3. No dislocation. SOFT TISSUES: Unremarkable. VASCULATURE: The thoracic aorta is within normal limits without aneurysm or dissection. LYMPH NODES: There is no mediastinal, hilar or axillary lymphadenopathy. TUBES, LINES AND DEVICES: There is a percutaneous gastrostomy tube in place. There is a tracheostomy tube in place. There is tracheomegaly. There is a right-sided chest port noted. IMPRESSION: 1. There is a large stool ball in the rectum distending the rectosigmoid to 7 cm in size. No evidence of inflammatory stranding to suggest colitis. Strongly suspect severe constipation, stable from the prior study. 2. No acute inflammatory process is identified in the abdomen or pelvis. 3. There is no evidence of pulmonary artery embolus. 4. RIGHT chest port, tracheostomy, percutaneous gastrostomy, Christensen catheter remain in place. There are also chronic fracture deformities as described above with heterotopic ossification. 5. Patchy inflammatory opacity identified in the RIGHT upper lobe posteriorly adjacent to the major fissure. Scattered subpleural LEFT upper lobe posterior patchy opacity also noted. These could be areas of aspiration pneumonia. There is bibasilar consolidation dependently. This has a chronic appearance and is unchanged, likely from chronic illness and ventilatory support. Electronically signed by: Balaji Daniel MD 10/25/2019 9:42 AM CDT
[2019-10-25] MEDS ORDERED: NOREPINEPHRINE BITARTRATE 4 MG in DEXTROSE 5% 250ML 250 ML IVPB SCH (10:00)
[2019-10-25] MEDS ORDERED: FLUCONAZOLE IV 200 MG in PREMIX BAG 1 BAG IVPB ONE (10:01)
[2019-10-25] MEDS ORDERED: PIPERACILLIN/TAZOBACTAM 3.375 GM in SODIUM CHLORIDE 0.9% 100ML 100 ML IVPB ONE (10:10)
[2019-10-25] MEDS ORDERED: FLUCONAZOLE IV 100 ML IVPB ONE (10:11)
[2019-10-25 11:08] VITALS: BP 130/83; TEMP 100.3; O2SAT 99
== END 2019-10-25 11:00 | disposition short-term general hospital (02) ==
LOC: ER 05:55
DX: E87.6 Hypokalemia (principal); G40.909 Epilepsy, unspecified, not intractable, without status epilepticus; A41.9 Sepsis, unspecified organism; J96.10 Chronic respiratory failure, unspecified whether with hypoxia or hypercapnia; R00.0 Tachycardia, unspecified; R79.1 Abnormal coagulation profile; N39.0 Urinary tract infection, site not specified; T83.511A Infection and inflammatory reaction due to indwelling urethral catheter, initial encounter; I25.2 Old myocardial infarction; I10 Essential (primary) hypertension; Z79.899 Other long term (current) drug therapy; Z99.11 Dependence on respirator [ventilator] status; Y92.9 Unspecified place or not applicable
CPT/HCPCS: 36415; 36600; 71045; 71275; 74177; 80053; 80185; 81001; 82550; 82553; 82803; 82805; 83605; 83880; 84484; 85025; 85379; 85610; 85730; 87040; 87086; 93005; 94002; 94760; J0696; J1450; J1956; J2543; J2930; J3480; J7030; J7050; J7060

== ENCOUNTER → 2019-11-19 | Outpatient (CLI) | payer MEDICAID | LOC: GOCC 06:44 | PROVIDERS: ATTEND Internal Medicine | DX: R30.0 Dysuria (principal) ==

== ENCOUNTER 2019-11-21 05:24 | Emergency (ER) | payer MEDICAID, OTHER ==
--- NOTE | 2019-11-21 05:57 | RAD ---
EXAM DESCRIPTION: Chest,1 View CLINICAL HISTORY: elevated HR COMPARISON: 10/25/2019 FINDINGS: Single frontal view of the chest. Cardiomediastinal silhouette: Right IJ Mediport with tip in the SVC. Tracheostomy. Leads overlie the chest. Heart is not enlarged. Lungs: Low lung volumes.) Infrahilar airspace opacity. No pneumothorax or large effusion. Bones: Degenerative change of the spine and shoulders. Upper abdomen: No abnormality identified. IMPRESSION: 1. Right perihilar and infrahilar airspace opacity concerning for pneumonia. Continued radiographic follow-up to resolution recommended. Electronically signed by: Petey Melgar 11/21/2019 5:56 AM CDT
[2019-11-21 06:01] VITALS: O2SAT 100
--- NOTE | 2019-11-21 06:29 | ED.PDOC ---
History of Present Illness - General Chief Complaint: Possible Sepsis Stated Complaint: "low o2 sats and elevated HR" from [facility] Time Seen by Provider: 11/21/19 06:16 Source: patient, RN notes reviewed, Vital Signs reviewed, old records Exam Limitations: clinical condition, physical impairment - Patient is noncommunicative - History of Present Illness Initial Comments: Patient is a 44-year-old black male who presents with tachycardia, fever, shortness of breath and concern for pneumonia and sepsis. Patient was here approximately 1 month ago for same. Patient was started on Rocephin, Levaquin and Zosyn and admitted to the hospital in [place]. Timing/Duration: 1-3 hours Severity: severe Improving Factors: nothing Worsening Factors: nothing Associated Symptoms: cough, fever/chills, malaise, shortness of breath Allergies/Adverse Reactions: Allergies NO KNOWN ALLERGY Allergy (Verified 05/04/19 12:36) Home Medications: Ambulatory Orders Folic Acid 1 mg PEG DAILY 05/21/19 Lorazepam 1 mg PEG Q4H 05/21/19 Phenytoin Suspension [Dilantin Suspension] 12 ml PEG BID 05/21/19 Sucralfate Suspension [Carafate Suspension] 1 gm PEG QID 05/21/19 metFORMIN HCL [Glucophage] 500 mg PEG DAILY 05/21/19 Acetaminophen [Acetaminophen Extra Stren] 1,000 mg PEG Q12H 10/25/19 Albuterol Sulfate Nebs [Proventil Nebs] 2.5 mg INH Q4H PRN 10/25/19 Ascorbic Acid [Vitamin C] 500 mg PEG DAILY 10/25/19 Cetirizine HCl [Zyrtec Allergy] 10 mg PEG DAILY 10/25/19 Cholestyramine Powder [Questran Powder] 4 gm PEG TID 10/25/19 Cyanocobalamin [B-12] 1,000 mcg PEG DAILY 10/25/19 Dextran 70-Hypromellose [Artificial Tears 0.1-0.3 %] 1 samuel BOTH_EYES Q4H PRN 10/25/19 Ergocalciferol [Vitamin D] 50,000 unit PEG MONTHLY 10/25/19 Gabapentin 100 mg PEG Q8H PRN 20 Ipratropium/Albuterol [Duoneb] 3 ml NEB Q6H 10/25/19 Metoprolol Tartrate 25 mg PEG Q8H 10/25/19 [place]-3 Fatty Acids [Fish Oil 500 mg] 1 cap PEG DAILY 10/25/19 Pantoprazole Suspension [Protonix] 40 mg PEG DAILY 10/25/19 guaiFENesin 100 MG/5 ML [Robitussin] 30 ml PEG BID 10/25/19 Lorazepam 11/21/19 Review of Systems - Review of Systems Constitutional: States: see HPI, chills, fever, malaise, weakness Respiratory: States: see HPI, cough, short of breath Neurological: States: pre-existing deficit Unable to Obtain Due To: condition, clinical condition All other Systems: No Change from Baseline Past Medical History (General) - Patient Medical History Hx Seizures: Yes Hx Stroke: No Hx Dementia: No Hx Asthma: - Acute Resp failure, vent dependent Hx Cardiac Disorders: Yes - Hx AK Hx Congestive Heart Failure: No Hx Pacemaker: No Hx Hypertension: Yes Hx Thyroid Disease: No Hx Diabetes: No Hx Gastroesophageal Reflux: No Hx Renal Disease: No Hx Cancer: No Hx of HIV: No Hx Hepatitis C: No Hx MRSA: Yes - Vaccination History Hx Tetanus, Diphtheria Vaccination: No Hx Influenza Vaccination: - Unknown Hx Pneumococcal Vaccination: - Unknown - Social History Hx Tobacco Use: Yes Hx Alcohol Use: Yes Hx Substance Use: - Unknown Hx Substance Use Treatment: - Unknown Hx Depression: - Unknown Family Medical History - Family History Mother Family History: Unknown Physical Exam - Physical Exam General Appearance: Lethargic, Obvious distress, Ill Appearing, Well Developed Ears, Nose, Throat: hearing grossly normal, other - Dry mucous membranes Neck: full range of motion, supple Respiratory: chest non-tender, respiratory distress - Moderate, decreased breath sounds - Diffusely throughout, rhonchi - Diffusely throughout Cardiovascular/Chest: no murmur, tachycardia Peripheral Pulses: radial,right: 2+, radial,left: 2+ Gastrointestinal/Abdominal: normal bowel sounds, soft, no organomegaly Back Exam: no CVA tenderness, no vertebral tenderness Extremity: no pedal edema, normal capillary refill Neurologic: depressed affect, disoriented x 3 Skin Exam: normal color, warm/dry Lymphatic: no adenopathy Progress - Progress Progress: Differential diagnosis: Pneumonia, sepsis, pyelonephritis, UTI, infected port among others. 11/21/19 06:36 Patient is tachycardic to the 150s. He does have a good pressure and his lactic acid is not elevated at this point in time. Patient's blood pressure is marginal. Plan on starting antibiotics and transfer to [facility] for [facility]. Patient's port was accessed the last time he was here and the Chris needle set up postop mood changed. Additionally his PowerPort will not draw so I suspect that it has clotted off. Patient is also febrile. Cultures are pending. Plan transfer at this time. Patient's care was handed off to Dr. Jaspal Veloz at 7 AM. Iraj Leary M.D. #[id number] - Results/Orders Results/Orders: 11/21/19 05:37 CPM Routine 11/21/19 05:45 Urine Culture Stat EKG STAT 11/21/19 05:55 CBC (AUTOMATED) W/AUTO DIFF Stat DIFFERENTIAL,MANUAL BY FLAGS Stat BLOOD CULTURE Stat 11/21/19 06:34 Meropenem [Merrem] 1 gm Sodium Chl 0.9% 50Ml Min-Bag+ [NS 50ml MINI-BAG+] 50 ml IVPB ONCE Laboratory Results - last 24 hr 11/21/19 11/21/19 11/21/19 05:45 05:55 05:55 WBC 30.1 H* RBC 4.39 L Hgb 11.5 L Hct 35.7 L MCV 81.3 MCH 26.1 L MCHC 32.1 L RDW 18.1 H Plt Count 483 H MPV 7.4 Absolute Neuts (auto) Not Reportable Absolute Lymphs (auto) Not Reportable Absolute Monos (auto) Not Reportable Absolute Eos (auto) Not Reportable Neutrophils % Not Reportable Neutrophils % (Manual) 86.0 H Lymphocytes % Not Reportable Lymphocytes % (Manual) 4.0 Monocytes % Not Reportable Eosinophils % Not Reportable Basophils % Not Reportable Band Neutrophils 10.0 H Platelet Estimate Increased Normal RBC Morphology Normal rbc morph Lactic Acid Troponin I < 0.02 Urine Color Yellow Urine Appearance Cloudy Urine pH 6.5 Ur Specific [place] >= 1.030 Urine Protein 100 H Urine Glucose (UA) Negative Urine Ketones Trace Urine Blood Moderate H Urine Nitrite Negative Urine Bilirubin Negative Urine Urobilinogen 0.2 Ur Leukocyte Esterase Small H Urine RBC >50 H Urine WBC >50 H Ur Epithelial Cells 0-1 Amorphous Sediment 1+ Urine Bacteria 2+ H Urine Yeast 2+ budding 11/21/19 05:55 WBC RBC Hgb Hct MCV MCH MCHC RDW Plt Count MPV Absolute Neuts (auto) Absolute Lymphs (auto) Absolute Monos (auto) Absolute Eos (auto) Neutrophils % Neutrophils % (Manual) Lymphocytes % Lymphocytes % (Manual) Monocytes % Eosinophils % Basophils % Band Neutrophils Platelet Estimate Normal RBC Morphology Lactic Acid 1.4 Troponin I Urine Color Urine Appearance Urine pH Ur Specific [place] Urine Protein Urine Glucose (UA) Urine Ketones Urine Blood Urine Nitrite Urine Bilirubin Urine Urobilinogen Ur Leukocyte Esterase Urine RBC Urine WBC Ur Epithelial Cells Amorphous Sediment Urine Bacteria Urine Yeast EXAM DESCRIPTION: Chest,1 View CLINICAL HISTORY: elevated HR COMPARISON: 10/25/2019 FINDINGS: Single frontal view of the chest. Cardiomediastinal silhouette: Right IJ Mediport with tip in the SVC. Tracheostomy. Leads overlie the chest. Heart is not enlarged. Lungs: Low lung volumes.) Infrahilar airspace opacity. No pneumothorax or large effusion. Bones: Degenerative change of the spine and shoulders. Upper abdomen: No abnormality identified. IMPRESSION: 1. Right perihilar and infrahilar airspace opacity concerning for pneumonia. Cont inued radiographic follow-up to resolution recommended. Electronically signed by: Petey Melgar 11/21/2019 5:56 AM Departure - Departure Clinical Impression: Bandemia Pneumonia Qualifiers: Pneumonia type: due to unspecified organism Laterality: unspecified laterality Lung location: unspecified part of lung Qualified Code(s): J18.9 - Pneumonia, unspecified organism Sepsis Qualifiers: Sepsis type: sepsis due to unspecified organism Sepsis acute organ dysfunction status: without acute organ dysfunction Qualified Code(s): A41.9 - Sepsis, unspecified organism UTI (urinary tract infection) Qualifiers: Urinary tract infection type: acute cystitis Hematuria presence: without hematuria Qualified Code(s): N30.00 - Acute cystitis without hematuria Time of Disposition: 07:06 Disposition: Discharge to Home or Self Care Condition: Serious Departure Forms: ED Discharge - Pt. Copy, Patient Portal Self Enrollment Instructions: DI for Sepsis -- Adult Referrals: KEITH PAPPAS [Primary Care Provider] - 1-2 Weeks Home Medications: Ambulatory Orders Folic Acid 1 mg PEG DAILY 05/21/19 Lorazepam 1 mg PEG Q4H 05/21/19 Phenytoin Suspension [Dilantin Suspension] 12 ml PEG BID 05/21/19 Sucralfate Suspension [Carafate Suspension] 1 gm PEG QID 05/21/19 metFORMIN HCL [Glucophage] 500 mg PEG DAILY 05/21/19 Acetaminophen [Acetaminophen Extra Stren] 1,000 mg PEG Q12H 10/25/19 Albuterol Sulfate Nebs [Proventil Nebs] 2.5 mg INH Q4H PRN 10/25/19 Ascorbic Acid [Vitamin C] 500 mg PEG DAILY 10/25/19 Cetirizine HCl [Zyrtec Allergy] 10 mg PEG DAILY 10/25/19 Cholestyramine Powder [Questran Powder] 4 gm PEG TID 10/25/19 Cyanocobalamin [B-12] 1,000 mcg PEG DAILY 10/25/19 Dextran 70-Hypromellose [Artificial Tears 0.1-0.3 %] 1 samuel BOTH_EYES Q4H PRN 10/25/19 Ergocalciferol [Vitamin D] 50,000 unit PEG MONTHLY 10/25/19 Gabapentin 100 mg PEG Q8H PRN 10/25/19 Ipratropium/Albuterol [Duoneb] 3 ml NEB Q6H 10/25/19 Metoprolol Tartrate 25 mg PEG Q8H 10/25/19 [place]-3 Fatty Acids [Fish Oil 500 mg] 1 cap PEG DAILY 10/25/19 Pantoprazole Suspension [Protonix] 40 mg PEG DAILY 10/25/19 guaiFENesin 100 MG/5 ML [Robitussin] 30 ml PEG BID 10/25/19 Lorazepam 11/21/19 Transfer to Outside Facility - Transfer Information Decision to Transfer Date: 11/21/19 Decision to Transfer Time: 06:30 Reason for Transfer: required specialist not available Accepting Facility: [facility]
[2019-11-21] MEDS ORDERED: MEROPENEM 1 GM in SODIUM CHL 0.9% 50ML MIN-BAG+ 50 ML IVPB ONE (06:34)
[2019-11-21] MEDS ORDERED: SODIUM CHLORIDE 0.9% 1000ML 1,000 ML IVS ONE (06:56)
[2019-11-21] MEDS ORDERED: ACETAMINOPHEN 500 MG TAB PO ONE (07:06)
[2019-11-21 08:26] VITALS: BP 107/62; TEMP 101.9
== END 2019-11-21 08:26 | disposition home or self-care (01) ==
LOC: ER 05:24
DX: D72.825 Bandemia (principal); J18.9 Pneumonia, unspecified organism; A41.9 Sepsis, unspecified organism; N30.00 Acute cystitis without hematuria; R50.9 Fever, unspecified; I10 Essential (primary) hypertension; I25.2 Old myocardial infarction; Z79.899 Other long term (current) drug therapy; Z99.11 Dependence on respirator [ventilator] status
CPT/HCPCS: 36415; 71045; 81001; 83605; 84484; 85025; 87040; 87077; 87086; 87186; 93005; 94002; J2185; J7030; J7050

== ENCOUNTER 2019-12-04 12:51 | Emergency (ER) | payer MEDICAID ==
[2019-12-04] MEDS ORDERED: ACETAMINOPHEN 500 MG TAB PO ONE (13:20)
[2019-12-04] MEDS ORDERED: SODIUM CHLORIDE 0.9% (FLUSH) 10 ML SYG IV PRN (13:23)
[2019-12-04] MEDS ORDERED: SODIUM CHLORIDE 0.9% 1000ML 1,000 ML IVS ONE ×2 (13:23→15:07)
--- NOTE | 2019-12-04 13:52 | RAD ---
EXAM DESCRIPTION: Chest,1 View CLINICAL HISTORY: fever COMPARISON: 21 November 2019 TECHNIQUE: AP portable chest FINDINGS: An Stuzty-m-[id number] catheter seen in place on the patient's right. A tracheostomy tube is seen at the level of the thoracic inlet. Patchy right basilar interstitial infiltrate is observed. The heart is within range of normal. The left chest is clear. IMPRESSION: A right basilar infiltrate is detected. Electronically signed by: Morris Sy MD 12/04/2019 1:51 PM CDT
[2019-12-04] MEDS ORDERED: levoFLOXacin 750MG IV 750 MG in PREMIX BAG 1 BAG IVPB ONE (14:53)
[2019-12-04] MEDS ORDERED: KETOROLAC TROMETHAMINE INJ 30 MG/ML VIAL IV ONE (14:59)
--- NOTE | 2019-12-04 15:18 | ED.PDOC ---
History of Present Illness - General Chief Complaint: Fever Stated Complaint: tachycardic, fever Time Seen by Provider: 12/04/19 13:23 Source: RN notes reviewed, Vital Signs reviewed, EMS notes reviewed, jail records Exam Limitations: physical impairment - History of Present Illness Initial Comments: Patient is a 44-year-old black male who is on a vent chronically who presents with fever, tachycardia. Additionally patient has increased work of breathing. Per the jail patient was fine this morning. Timing/Duration: 4-6 hours Severity: moderate Improving Factors: nothing Worsening Factors: nothing Associated Symptoms: cough, diaphoresis, fever/chills, shortness of breath Allergies/Adverse Reactions: Allergies NO KNOWN ALLERGY Allergy (Verified 12/04/19 13:20) Home Medications: Ambulatory Orders Folic Acid 1 mg PEG DAILY 05/21/19 Lorazepam 1 mg PEG Q4H 05/21/19 Phenytoin Suspension [Dilantin Suspension] 12 ml PEG BID 05/21/19 Sucralfate Suspension [Carafate Suspension] 1 gm PEG QID 05/21/19 metFORMIN HCL [Glucophage] 500 mg PEG DAILY 05/21/19 Acetaminophen [Acetaminophen Extra Stren] 1,000 mg PEG Q12H 10/25/19 Albuterol Sulfate Nebs [Proventil Nebs] 2.5 mg INH Q4H PRN 10/25/19 Ascorbic Acid [Vitamin C] 500 mg PEG DAILY 10/25/19 Cetirizine HCl [Zyrtec Allergy] 10 mg PEG DAILY 10/25/19 Cholestyramine Powder [Questran Powder] 4 gm PEG TID 10/25/19 Cyanocobalamin [B-12] 1,000 mcg PEG DAILY 10/25/19 Dextran 70-Hypromellose [Artificial Tears 0.1-0.3 %] 1 samuel BOTH_EYES Q4H PRN 10/25/19 Ergocalciferol [Vitamin D] 50,000 unit PEG MONTHLY 10/25/19 Gabapentin 100 mg PEG Q8H PRN 10/25/19 Ipratropium/Albuterol [Duoneb] 3 ml NEB Q6H 10/25/19 Metoprolol Tartrate 25 mg PEG Q8H 30/20 Dunlap-3 Fatty Acids [Fish Oil 500 mg] 1 cap PEG DAILY 10/25/19 Pantoprazole Suspension [Protonix] 40 mg PEG DAILY 10/25/19 guaiFENesin 100 MG/5 ML [Robitussin] 30 ml PEG BID 10/25/19 Lorazepam 11/21/19 Review of Systems - Review of Systems Constitutional: States: see HPI, chills, fever Respiratory: States: cough, short of breath - Patient is a vented patient and is unable to speak Unable to Obtain Due To: clinical condition Past Medical History (General) - Patient Medical History Hx Seizures: Yes Hx Stroke: No Hx Dementia: No Hx Asthma: - Acute Resp failure, vent dependent Hx Cardiac Disorders: Yes - Hx [place] Hx Congestive Heart Failure: No Hx Pacemaker: No Hx Hypertension: Yes Hx Thyroid Disease: No Hx Diabetes: No Hx Gastroesophageal Reflux: No Hx Renal Disease: No Hx Cancer: No Hx of HIV: No Hx Hepatitis C: No Hx MRSA: Yes - Vaccination History Hx Tetanus, Diphtheria Vaccination: No Hx Influenza Vaccination: - Unknown Hx Pneumococcal Vaccination: - Unknown - Social History Hx Tobacco Use: Yes Hx Alcohol Use: Yes Hx Substance Use: - Unknown Hx Substance Use Treatment: - Unknown Hx Depression: - Unknown - Activities of Daily Living Prison/Assisted Living (if applicable):: [facility] (if applicable):: None - Female History Patient is a Female of Child Bearing Age (10 -59 yrs old): No Family Medical History - Family History Mother Family History: Unknown Physical Exam - Physical Exam General Appearance: Alert, Anxious, Obvious distress, Ill Appearing, Well Developed, Well Nourished Eye Exam: bilateral normal Ears, Nose, Throat: hearing grossly normal, normal pharynx Neck: non-tender, full range of motion, supple Respiratory: chest non-tender, respiratory distress - Mild, decreased breath sounds - Diffusely throughout, rales - Right lower lobe, rhonchi - Diffusely throughout Cardiovascular/Chest: no gallop, no murmur, tachycardia Peripheral Pulses: radial,right: 2+, radial,left: 2+ Gastrointestinal/Abdominal: normal bowel sounds, non tender, soft Back Exam: no CVA tenderness, no vertebral tenderness, decreased range of motion Extremity: other - Patient with lower extremity and upper extremity contractures. Neurologic: alert, aphasia Skin Exam: normal color, diaphoresis, other - Skin is warm to touch. Lymphatic: no adenopathy Progress - Progress Progress: Differential diagnosis: COVID-19, pneumonia, influenza, sepsis, viral URI among others. 12/04/19 16:51 Patient with a right lower lobe pneumonia. Levaquin has infused. Cultures are pending. Plan on transfer for admission to [facility]. I have discussed this with [facility] and they have been accepted into the ED. Iraj Leary M.D. #[id number] - Results/Orders Results/Orders: EXAM DESCRIPTION: Chest,1 View CLINICAL HISTORY: fever COMPARISON: 21 November 2019 TECHNIQUE: AP portable chest FINDINGS: An [id number] catheter seen in place on the patient's right. A tracheostomy tube is seen at the level of the thoracic inlet. Patchy right basilar interstitial infiltrate is observed. The heart is within range of normal. The left chest is clear. IMPRESSION: A right basilar infiltrate is detected. Electronically signed by: Morris Sy MD 12/04/2019 1:51 PM EKG performed on 04 December 2019 at 1410 hrs.: Sinus tachycardia at 145 bpm, right axis deviation, nonspecific ST and T wave changes, abnormal EKG. No comparison EKG available at this time. 12/04/19 13:15 SPUTUM CULTURE Stat 12/04/19 13:23 Sodium Chloride 0.9% (Flush) [Saline Flush Syringe] 10 ml IV PRN PRN 12/04/19 13:24 EKG Stat Pulse Ox Stat Pulse Oximetry Assessment DAILY 12/04/19 14:18 BLOOD CULTURE Stat 12/04/19 14:31 Capnography .ONCE Mechanical Ventilation DAILY 12/04/19 15:04 URINE CULTURE W/COLONY COUNT Stat 12/04/19 16:38 LACTIC ACID Q2H Laboratory Results - last 24 hr 12/04/19 12/04/19 12/04/19 13:55 13:55 14:18 WBC 27.8 H* RBC 3.88 L Hgb 10.3 L Hct 30.9 L MCV 79.6 L MCH 26.6 L MCHC 33.4 RDW 18.7 H Plt Count 438 H MPV 7.6 Absolute Neuts (auto) 23.50 H Absolute Lymphs (auto) 2.10 Absolute Monos (auto) 1.90 H Absolute Eos (auto) 0.10 Absolute Basos (auto) 0.20 H Total Counted Cancelled Neutrophils % 84.6 H Neutrophils % (Manual) Cancelled Lymphocytes % 7.5 L Lymphocytes % (Manual) Cancelled Monocytes % 7.0 Monocytes % (Manual) Cancelled Eosinophils % 0.3 L Basophils % 0.6 Band Neutrophils Cancelled Eosinophils Cancelled Basophils Cancelled Metamyelocytes Cancelled Myelocytes Cancelled Promyelocytes Cancelled Nucleated RBCs Cancelled Hypersegmented Polys Cancelled Blast Cells Cancelled Plasma Cells Cancelled Other Cell Type Cancelled Hypochromia Cancelled Toxic Granulation Cancelled Dohle Bodies Cancelled Eric Rods Cancelled Platelet Estimate Cancelled Normal RBC Morphology Cancelled Polychromasia Cancelled Poikilocytosis Cancelled Basophilic Stippling Cancelled Anisocytosis Cancelled Microcytosis Cancelled Macrocytosis Cancelled Spherocytes Cancelled Sickle Cells Cancelled Target Cells Cancelled Ovalocytes Cancelled Stomatocytes Cancelled Helmet Cells Cancelled [place]hesaning Bodies Cancelled [place] Rings Cancelled [place] Cells Cancelled Acanthocytes (Spur) Cancelled Rouleaux Cancelled Schistocytes Cancelled RBC Morph Comment Cancelled PUBS Tear Drop Cells Cancelled PT INR PTT (SP) pCO2 pO2 HCO3 ABG pH ABG O2 Saturation ABG Base Excess ABG Deoxyhemoglobin Oxyhemoglobin % Carboxyhemoglobin % Methemoglobin % Sat Calc Total Hemoglobin Sodium 135 Potassium 3.9 Chloride 97 L Carbon Dioxide 28 Anion Gap 13.9 BUN 15 Creatinine < 0.40 L BUN/Creatinine Ratio 37.0 H Random Glucose 122 H Serum Osmolality 272.2 L Lactic Acid 1.0 Calcium 8.7 Total Bilirubin 0.3 AST 15 ALT 14 Alkaline Phosphatase 245 H Creatine Kinase 136 CK-MB (CK-2) 1.5 CK-MB (CK-2) % Not Reportable Troponin I < 0.02 Serum Total Protein 8.2 Albumin 2.8 L Globulin 5.4 H Albumin/Globulin Ratio 0.5 L Urine Color Urine Appearance Urine pH Ur Specific [place] Urine Protein Urine Glucose (UA) Urine Ketones Urine Blood Urine Nitrite Urine Bilirubin Urine Urobilinogen Ur Leukocyte Esterase Urine RBC Urine WBC Ur Epithelial Cells Urine Bacteria Urine Mucus Urine Yeast 12/04/19 12/04/19 12/04/19 14:18 14:53 15:04 WBC RBC Hgb Hct MCV MCH MCHC RDW Plt Count MPV Absolute Neuts (auto) Absolute Lymphs (auto) Absolute Monos (auto) Absolute Eos (auto) Absolute Basos (auto) Total Counted Neutrophils % Neutrophils % (Manual) Lymphocytes % Lymphocytes % (Manual) Monocytes % Monocytes % (Manual) Eosinophils % Basophils % Band Neutrophils Eosinophils Basophils Metamyelocytes Myelocytes Promyelocytes Nucleated RBCs Hypersegmented Polys Blast Cells Plasma Cells Other Cell Type Hypochromia Toxic Granulation Dohle Bodies Eric Rods Platelet Estimate Normal RBC Morphology Polychromasia Poikilocytosis Basophilic Stippling Anisocytosis Microcytosis Macrocytosis Spherocytes Sickle Cells Target Cells Ovalocytes Stomatocytes Helmet Cells [place] Bodies [place] Rings Jose Alejandro Cells Acanthocytes (Spur) Rouleaux Schistocytes RBC Morph Comment PUBS Tear Drop Cells PT 10.5 INR 1.06 PTT (SP) 31.9 H pCO2 38 pO2 100 HCO3 30.6 ABG pH 7.510 H ABG O2 Saturation 98.9 ABG Base Excess 7.0 ABG Deoxyhemoglobin 1.1 Oxyhemoglobin % 97.6 Carboxyhemoglobin % 0.8 Methemoglobin % Sat 0.5 Calc Total Hemoglobin 9.5 L Sodium Potassium Chloride Carbon Dioxide Anion Gap BUN Creatinine BUN/Creatinine Ratio Random Glucose Serum Osmolality Lactic Acid Calcium Total Bilirubin AST ALT Alkaline Phosphatase Creatine Kinase CK-MB (CK-2) CK-MB (CK-2) % Troponin I Serum Total Protein Albumin Globulin Albumin/Globulin Ratio Urine Color Yellow Urine Appearance Sl cloudy Urine pH 7.5 Ur Specific [place] 1.020 Urine Protein Trace Urine Glucose (UA) Negative Urine Ketones Negative Urine Blood Trace-intact H Urine Nitrite Negative Urine Bilirubin Negative Urine Urobilinogen 0.2 Ur Leukocyte Esterase Small H Urine RBC 10-20 H Urine WBC >50 H Ur Epithelial Cells 0-1 Urine Bacteria 1+ Urine Mucus Small Urine Yeast 2+ budding Vital Signs 12/04/19 12/04/19 12/04/19 13:05 13:15 13:24 Temperature 103.4 F H Pulse Rate 150 H Pulse Rate [ 150 H 150 H brachial] Respiratory 22 36 H 22 Rate Respiratory 36 H Rate [Volume Control Data] Blood Pressure 108/65 [Left Arm] O2 Sat by Pulse 99 Oximetry 12/04/19 12/04/19 12/04/19 14:00 15:00 15:10 Temperature 103.3 F H 102 F H Pulse Rate 143 H Pulse Rate [ 143 H 138 H brachial] Respiratory 22 22 Rate Respiratory Rate [Volume Control Data] Blood Pressure 127/81 110/70 [Left Arm] O2 Sat by Pulse 98 97 Oximetry 12/04/19 16:00 Temperature 101.7 F H Pulse Rate Pulse Rate [ 133 H brachial] Respiratory 22 Rate Respiratory Rate [Volume Control Data] Blood Pressure 99/61 [Left Arm] O2 Sat by Pulse 98 Oximetry Departure - Departure Clinical Impression: Tachycardia, Dehydration Pneumonia Qualifiers: Pneumonia type: due to unspecified organism Laterality: right Lung location: lower lobe of lung Qualified Code(s): J18.9 - Pneumonia, unspecified organism Sepsis Qualifiers: Sepsis type: sepsis due to unspecified organism Sepsis acute organ dysfunction status: unspecified Qualified Code(s): A41.9 - Sepsis, unspecified organism Time of Disposition: 16:00 Disposition: Transfer to Hospital Condition: Serious Departure Forms: ED Discharge - Pt. Copy, Patient Portal Self Enrollment Referrals: KEITH PAPPAS [Primary Care Provider] - 1-2 Weeks Home Medications: Ambulatory Orders Folic Acid 1 mg PEG DAILY 05/21/19 Lorazepam 1 mg PEG Q4H 05/21/19 Phenytoin Suspension [Dilantin Suspension] 12 ml PEG BID 05/21/19 Sucralfate Suspension [Carafate Suspension] 1 gm PEG QID 05/21/19 metFORMIN HCL [Glucophage] 500 mg PEG DAILY 05/21/19 Acetaminophen [Acetaminophen Extra Stren] 1,000 mg PEG Q12H 10/25/19 Albuterol Sulfate Nebs [Proventil Nebs] 2.5 mg INH Q4H PRN 10/25/19 Ascorbic Acid [Vitamin C] 500 mg PEG DAILY 10/25/19 Cetirizine HCl [Zyrtec Allergy] 10 mg PEG DAILY 10/25/19 Cholestyramine Powder [Questran Powder] 4 gm PEG TID 10/25/19 Cyanocobalamin [B-12] 1,000 mcg PEG DAILY 10/25/19 Dextran 70-Hypromellose [Artificial Tears 0.1-0.3 %] 1 samuel BOTH_EYES Q4H PRN 10/25/19 Ergocalciferol [Vitamin D] 50,000 unit PEG MONTHLY 10/25/19 Gabapentin 100 mg PEG Q8H PRN 30/20 Ipratropium/Albuterol [Duoneb] 3 ml NEB Q6H 10/24/ Metoprolol Tartrate 25 mg PEG Q8H 20 Dunlap-3 Fatty Acids [Fish Oil 500 mg] 1 cap PEG DAILY 10/25/19 Pantoprazole Suspension [Protonix] 40 mg PEG DAILY 10/25/19 guaiFENesin 100 MG/5 ML [Robitussin] 30 ml PEG BID 10/25/19 Lorazepam 11/21/19 Critical Care Note - Critical Care Note Total Time (mins): 45 Transfer to Outside Facility - Transfer Information Decision to Transfer Date: 12/04/19 Decision to Transfer Time: 16:00 Reason for Transfer: specialized care not available Accepting Facility: [facility]
[2019-12-04 17:46] VITALS: TEMP 100.9
[2019-12-04 17:49] VITALS: BP 98/67; O2SAT 98
== END 2019-12-04 17:25 | disposition short-term general hospital (02) ==
LOC: ER 12:51
DX: A41.9 Sepsis, unspecified organism (principal); J18.9 Pneumonia, unspecified organism; R00.0 Tachycardia, unspecified; E86.0 Dehydration; Z93.0 Tracheostomy status; R56.9 Unspecified convulsions; I25.2 Old myocardial infarction; I10 Essential (primary) hypertension; Z86.14 Personal history of Methicillin resistant Staphylococcus aureus infection; Z79.4 Long term (current) use of insulin; Z79.899 Other long term (current) drug therapy; Z87.891 Personal history of nicotine dependence
CPT/HCPCS: 36415; 36600; 71045; 80053; 81001; 82550; 82553; 82803; 82805; 83605; 84484; 85025; 85610; 85730; 87040; 87070; 87077; 87086; 87186; 87205; 93005; 94002; 94640; 94770; J1956; J7030

== ENCOUNTER 2019-12-11 05:14 | Emergency (ER) | payer MEDICAID ==
--- NOTE | 2019-12-11 06:39 | ED.PDOC ---
History of Present Illness - General Source: RN notes reviewed, Vital Signs reviewed, EMS notes reviewed Exam Limitations: clinical condition - History of Present Illness Initial Comments: Patient is a 44-year-old black male who is ventilator dependent who presents from the longterm with complaints of 100 mL's of dark coffee-ground emesis. Patient is noncommunicative and I cannot obtain no other information from him. The history of present illness and the review of systems is limited secondary to his nonverbal ability. Timing/Duration: unsure Severity: mild Improving Factors: nothing Worsening Factors: nothing Associated Symptoms: nausea/vomiting <Iraj Leary - Last Filed: 12/11/19 06:28> - History of Present Illness Initial Comments: The patient initially presented secondary to coffee-ground emesis. This is gastro-occult positive. Repeat H&H has been stable. The patient however is significantly tachycardic. The patient was recently in [facility] from the th through the of this month for sepsis due to ventilator associated pneumonia. He was apparently started on vancomycin and meropenem for that and has been on that antibiotic since that time. He does have known chronic urinary tract infections as well as a chronic sacral decubitus ulcer as sources of infection. The patient is nonresponsive which is not new. As of his testing at [facility] from his last day he was coronavirus negative. Coronavirus is however in the longterm that he is at. We are going to retest today but the results not be back until later. <Feliciano Veloz - Last Filed: 12/11/19 10:58> - General Chief Complaint: GI Problem Time Seen by Provider: 12/11/19 06:28 - History of Present Illness Allergies/Adverse Reactions: Allergies NO KNOWN ALLERGY Allergy (Verified 12/04/19 13:20) Home Medications: Ambulatory Orders Folic Acid 1 mg PEG DAILY 05/21/19 Lorazepam 1 mg PEG Q4H 05/21/19 Phenytoin Suspension [Dilantin Suspension] 12 ml PEG BID 05/21/19 Acetaminophen [Acetaminophen Extra Stren] 1,000 mg PEG Q12H 10/25/19 Albuterol Sulfate Nebs [Proventil Nebs] 2.5 mg INH Q4H PRN 10/25/19 Cetirizine HCl [Zyrtec Allergy] 10 mg PEG DAILY 10/25/19 Cholestyramine Powder [Questran Powder] 4 gm PEG TID 10/25/19 Cyanocobalamin [B-12] 1,000 mcg PEG DAILY 10/25/19 Dextran 70-Hypromellose [Artificial Tears 0.1-0.3 %] 1 samuel BOTH_EYES Q4H PRN 10/25/19 Ergocalciferol [Vitamin D] 50,000 unit PEG MONTHLY 10/25/19 Gabapentin 100 mg PEG Q8H PRN 10/25/19 Ipratropium/Albuterol [Duoneb] 3 ml NEB Q6H 10/25/19 Metoprolol Tartrate 25 mg PEG Q8H 10/25/19 Pantoprazole Suspension [Protonix] 40 mg PEG DAILY 10/25/19 Gabapentin 100 mg PO 12/11/19 Meropenem [Merrem] 500 mg IV 12/11/19 Nitrofurantoin Macrocrystal [Nitrofurantoin] 100 mg PO 12/11/19 Vancomycin HCl 1 gm IV 12/11/19 Review of Systems - Review of Systems Review of Systems: 12/11/19 07:12 Review of systems limited secondary to noncommunicative nature patient. Constitutional: States: see HPI Gastrointestinal/Abdominal: States: vomiting - Coffee grounds emesis x100 mL's per longterm Unable to Obtain Due To: clinical condition <Iraj Leary - Last Filed: 12/11/19 06:28> Past Medical History (General) - Patient Medical History Hx Seizures: Yes Hx Stroke: No Hx Dementia: No Hx Asthma: No Hx of COPD: No Hx Cardiac Disorders: No Hx Congestive Heart Failure: No Hx Pacemaker: No Hx Hypertension: No Hx Thyroid Disease: No Hx Diabetes: No Hx Gastroesophageal Reflux: No Hx Renal Disease: No Hx Cancer: No Hx of HIV: No Hx Hepatitis C: No Hx MRSA: No - Vaccination History Hx Tetanus, Diphtheria Vaccination: - Unknown Hx Influenza Vaccination: - Unknown Hx Pneumococcal Vaccination: - Unknown - Social History Hx Tobacco Use: - Unknown Hx Chewing Tobacco Use: - Unknown Hx Alcohol Use: - Unknown Hx Substance Use: - Unknown Hx Substance Use Treatment: - Unknown Hx Depression: - Unknown - Activities of Daily Living Assisted/Assisted Living (if applicable):: [facility] - Female History Patient is a Female of Child Bearing Age (10 -59 yrs old): No <Iraj Leary - Last Filed: 12/11/19 06:28> Family Medical History - Family History Mother Family History: Unknown <Iraj Leary - Last Filed: 12/11/19 06:28> Physical Exam - Physical Exam General Appearance: Frail, Obvious distress, Ill Appearing, Well Developed, Well Hydrated, Well Nourished Eye Exam: bilateral normal Ears, Nose, Throat: normal pharynx - Except dry mucous membranes Neck: non-tender, full range of motion, supple Respiratory: chest non-tender, respiratory distress, rhonchi - Diffusely throughout Cardiovascular/Chest: no edema, tachycardia Peripheral Pulses: radial,right: 2+, radial,left: 2+ Gastrointestinal/Abdominal: normal bowel sounds, non tender, soft Back Exam: no CVA tenderness, no vertebral tenderness Extremity: non-tender, normal capillary refill, pelvis stable Neurologic: alert, other - Patient can move all extremities. Skin Exam: normal color, warm/dry Lymphatic: no adenopathy <Iraj Leary - Last Filed: 12/11/19 06:28> - Physical Exam Skin Exam: other - The patient does have a chronic sacral decubitus ulcer. Estimated stage III. Comments: Vital Signs - 24 hr 12/11/19 12/11/19 12/11/19 05:23 05:27 05:30 Temperature 97.6 F Pulse Rate [ 115 H Pulse Ox] Respiratory 16 Rate Respiratory 33 H 22 Rate [Volume Control Data] Blood Pressure 127/95 [Left Arm] O2 Sat by Pulse 100 98 Oximetry 12/11/19 12/11/19 12/11/19 07:15 08:00 09:00 Temperature 100.8 F H 100.8 F H 100.3 F H Pulse Rate [ 132 H 124 H 131 H Pulse Ox] Respiratory 22 22 19 Rate Respiratory Rate [Volume Control Data] Blood Pressure 100/72 102/81 114/79 [Left Arm] O2 Sat by Pulse 100 98 100 Oximetry 12/11/19 10:00 Temperature 100.4 F H Pulse Rate [ 129 H Pulse Ox] Respiratory 21 Rate Respiratory Rate [Volume Control Data] Blood Pressure 112/68 [Left Arm] O2 Sat by Pulse 99 Oximetry <Feliciano Veloz - Last Filed: 12/11/19 10:58> Progress - Progress Progress: 12/11/19 07:14 Differential diagnosis: Pneumonia, Sherri-Chavez tear, upper GI bleed, COVID-19 among others. <Iraj Leary - Last Filed: 12/11/19 06:28> - Progress Progress: 12/11/19 10:52 The patient is a 44-year-old male presented to emergency room primarily due to an upper GI bleed. The patient had jd dulce coffee-ground emesis, Gastroccult positive this morning, which got him sent up here. This will need following and further evaluation. CT scan of abdomen pelvis is fairly reassuring. He does have significant constipation. Discs of imaging will be sent. Repeat H&H is essentially stable given the IV fluids that he was given. More concerning for the patient is that he appears to have worsening sepsis likely from ventilator associated pneumonia. White blood cell count at discharge from [facility] 4 days ago was 10,000, and is currently 30,000. Blood and sputum cultures are being done. Urine culture is being done. He is given 1 dose of IV Diflucan for the fungal UTI. The patient is given a dose of Zosyn here. His last doses of vancomycin and meropenem were yesterday. The patient is also received nausea medications as well as acid reducing medications. He has received 2 L of IV fluid for the sepsis. He is also received a dose of dexamethasone for the sepsis. The patient is requiring a higher than normal FiO2 on his ventilator, consistent with a worsening pneumonia. We are currently doing a repeat coronavirus test. Results will be available later today. He has tested negative in the past, however coronavirus is present in the longterm facility that he is at. Transferring for GI evaluation and ICU care. Acceptance is greatly appreciated. feliciano veloz 328 Critical care time spent on treatment of this patient for his sepsis and upper GI bleed, as well as for making arrangements for further care is 40 minutes. - Results/Orders Results/Orders: 12/11/19 06:49 Mechanical Ventilation DAILY 12/11/19 07:29 Hold Metformin x 48Hrs [id number] 12/11/19 07:30 URINE CULTURE W/COLONY COUNT Stat 12/11/19 07:45 BLOOD CULTURE Stat 12/11/19 10:00 RESPIRATORY PANEL 2 Stat 12/11/19 10:10 Piperacillin/Tazobactam [Zosyn] 3.375 gm Sodium Chloride 0.9% 100Ml [NS (NACL 0.9%) 100ml] 100 ml IVPB ONCE SPUTUM CULTURE Stat 12/11/19 10:28 Sodium Chloride 0.9% 1000ML [Ns 1000 ml] 1,000 ml IVS ONCE 12/11/19 10:29 Sodium Chloride 0.9% 1000ML [Ns 1000 ml] 1,000 ml IVS ONCE Laboratory Results - last 24 hr 12/11/19 12/11/19 12/11/19 06:12 06:12 06:12 WBC 30.4 H* RBC 4.33 L Hgb 11.1 L Hct 34.7 L MCV 80.1 MCH 25.6 L MCHC 31.9 L RDW 18.4 H Plt Count 591 H MPV 7.9 Absolute Neuts (auto) Not Reportable Absolute Lymphs (auto) Not Reportable Absolute Monos (auto) Not Reportable Absolute Eos (auto) Not Reportable Neutrophils % Not Reportable Neutrophils % (Manual) 89.0 H Lymphocytes % Not Reportable Lymphocytes % (Manual) 1.0 Monocytes % Not Reportable Monocytes % (Manual) 6.0 Eosinophils % Not Reportable Basophils % Not Reportable Band Neutrophils 4.0 H Hypochromia 1+ Platelet Estimate Increased Anisocytosis 1+ PT INR PTT (SP) Sodium 133 L Potassium 3.6 Chloride 95 L Carbon Dioxide 27 Anion Gap 14.6 BUN 22 H Creatinine < 0.40 L BUN/Creatinine Ratio 55.0 H Random Glucose 165 H Serum Osmolality 273.4 L Lactic Acid 1.3 Calcium 9.5 Total Bilirubin < 0.2 L AST 16 ALT 17 Alkaline Phosphatase 301 H Serum Total Protein 9.2 H Albumin 2.9 L Globulin 6.3 H Albumin/Globulin Ratio 0.5 L Urine Color Urine Appearance Urine pH Ur Specific [place] Urine Protein Urine Glucose (UA) Urine Ketones Urine Blood Urine Nitrite Urine Bilirubin Urine Urobilinogen Ur Leukocyte Esterase Urine RBC Urine WBC Ur Epithelial Cells Urine Bacteria Urine Yeast Gastric Fluid pH Gastric Occult Blood 12/11/19 12/11/19 12/11/19 06:40 06:40 07:30 WBC RBC Hgb 10.5 L Hct 33.8 L MCV MCH MCHC RDW Plt Count MPV Absolute Neuts (auto) Absolute Lymphs (auto) Absolute Monos (auto) Absolute Eos (auto) Neutrophils % Neutrophils % (Manual) Lymphocytes % Lymphocytes % (Manual) Monocytes % Monocytes % (Manual) Eosinophils % Basophils % Band Neutrophils Hypochromia Platelet Estimate Anisocytosis PT 10.4 INR 1.05 PTT (SP) 30.0 Sodium Potassium Chloride Carbon Dioxide Anion Gap BUN Creatinine BUN/Creatinine Ratio Random Glucose Serum Osmolality Lactic Acid Calcium Total Bilirubin AST ALT Alkaline Phosphatase Serum Total Protein Albumin Globulin Albumin/Globulin Ratio Urine Color Yellow Urine Appearance Cloudy Urine pH 7.0 Ur Specific [place] 1.015 Urine Protein Negative Urine Glucose (UA) Negative Urine Ketones Negative Urine Blood Trace-lysed H Urine Nitrite Negative Urine Bilirubin Negative Urine Urobilinogen 0.2 Ur Leukocyte Esterase Moderate H Urine RBC 1-3 Urine WBC 20-30 H Ur Epithelial Cells 0 Urine Bacteria Rare Urine Yeast 3+ budding Gastric Fluid pH Gastric Occult Blood 12/11/19 07:30 WBC RBC Hgb Hct MCV MCH MCHC RDW Plt Count MPV Absolute Neuts (auto) Absolute Lymphs (auto) Absolute Monos (auto) Absolute Eos (auto) Neutrophils % Neutrophils % (Manual) Lymphocytes % Lymphocytes % (Manual) Monocytes % Monocytes % (Manual) Eosinophils % Basophils % Band Neutrophils Hypochromia Platelet Estimate Anisocytosis PT INR PTT (SP) Sodium Potassium Chloride Carbon Dioxide Anion Gap BUN Creatinine BUN/Creatinine Ratio Random Glucose Serum Osmolality Lactic Acid Calcium Total Bilirubin AST ALT Alkaline Phosphatase Serum Total Protein Albumin Globulin Albumin/Globulin Ratio Urine Color Urine Appearance Urine pH Ur Specific [place] Urine Protein Urine Glucose (UA) Urine Ketones Urine Blood Urine Nitrite Urine Bilirubin Urine Urobilinogen Ur Leukocyte Esterase Urine RBC Urine WBC Ur Epithelial Cells Urine Bacteria Urine Yeast Gastric Fluid pH 4.0 Gastric Occult Blood Positive CT scan of the chest shows numerous chronic findings but essentially worsening right-sided pneumonia. See report for full details. CT abdomen pelvis shows significant constipation along with chronic changes including a T12 compression fracture. See report for details. <Feliciano Veloz - Last Filed: 12/11/19 10:58> Departure - Departure Time of Disposition: 07:15 <Iraj Leary - Last Filed: 12/11/19 06:28> <Feliciano Veloz - Last Filed: 12/11/19 10:58> - Departure Clinical Impression: Ventilator associated pneumonia, Upper GI bleed Vomiting Qualifiers: Vomiting type: unspecified Vomiting Intractability: non-intractable Nausea presence: unspecified Qualified Code(s): R11.10 - Vomiting, unspecified Sepsis Qualifiers: Sepsis type: sepsis due to unspecified organism Sepsis acute organ dysfunction status: with acute organ dysfunction Acute respiratory failure type: with hypoxia Severe sepsis shock status: with septic shock UTI (urinary tract infection) due to urinary indwelling Christensen catheter Qualifiers: Indwelling urinary catheter type: indwelling urethral catheter Encounter type: initial encounter Qualified Code(s): T83.511A - Infection and inflammatory reaction due to indwelling urethral catheter, initial encounter; N39.0 - Urinary tract infection, site not specified Decubitus ulcer Qualifiers: Pressure injury location: buttock Pressure injury stage: stage 3 Laterality: unspecified laterality Qualified Code(s): L89.303 - Pressure ulcer of unspecified buttock, stage 3 Disposition: Transfer to Hospital Condition: Fair Departure Forms: ED Discharge - Pt. Copy, Patient Portal Self Enrollment Referrals: KEITH PAPPAS [Primary Care Provider] - 1-2 Weeks Home Medications: Ambulatory Orders Folic Acid 1 mg PEG DAILY 05/21/19 Lorazepam 1 mg PEG Q4H 05/21/19 Phenytoin Suspension [Dilantin Suspension] 12 ml PEG BID 05/21/19 Acetaminophen [Acetaminophen Extra Stren] 1,000 mg PEG Q12H 10/25/19 Albuterol Sulfate Nebs [Proventil Nebs] 2.5 mg INH Q4H PRN 10/25/19 Cetirizine HCl [Zyrtec Allergy] 10 mg PEG DAILY 10/25/19 Cholestyramine Powder [Questran Powder] 4 gm PEG TID 10/25/19 Cyanocobalamin [B-12] 1,000 mcg PEG DAILY 10/25/19 Dextran 70-Hypromellose [Artificial Tears 0.1-0.3 %] 1 samuel BOTH_EYES Q4H PRN 10/25/19 Ergocalciferol [Vitamin D] 50,000 unit PEG MONTHLY 10/25/19 Gabapentin 100 mg PEG Q8H PRN 10/25/19 Ipratropium/Albuterol [Duoneb] 3 ml NEB Q6H 10/25/19 Metoprolol Tartrate 25 mg PEG Q8H 10/25/19 Pantoprazole Suspension [Protonix] 40 mg PEG DAILY 10/25/19 Gabapentin 100 mg PO 12/11/19 Meropenem [Merrem] 500 mg IV 12/11/19 Nitrofurantoin Macrocrystal [Nitrofurantoin] 100 mg PO 12/11/19 Vancomycin HCl 1 gm IV 12/11/19 Transfer to Outside Facility - Transfer Information Decision to Transfer Date: 12/11/19 Decision to Transfer Time: 10:58 Reason for Transfer: required specialist not available Accepting Provider:: dr ward Accepting Facility: [facility] <Feliciano Veloz L - Last Filed: 12/11/19 10:58>
[2019-12-11] MEDS ORDERED: SODIUM CHLORIDE 0.9% 1000ML 1,000 ML IVS ONE ×3 (07:21→10:29)
[2019-12-11] MEDS ORDERED: ONDANSETRON ODT 8 MG TAB SL ONE (07:21)
[2019-12-11] MEDS ORDERED: PROMETHAZINE HCL INJ 25 MG in SODIUM CHLORIDE 0.9% 50ML 50 ML IVPB ONE (07:30)
[2019-12-11] MEDS ORDERED: FLUCONAZOLE IV 200 MG in PREMIX BAG 1 BAG IVPB ONE (08:18)
[2019-12-11] MEDS ORDERED: PANTOPRAZOLE SODIUM IV 40 MG VIAL IV ONE (08:54)
--- NOTE | 2019-12-11 09:58 | CT ---
EXAM DESCRIPTION: Chest w/Contrast CLINICAL HISTORY: 44 years, Male, upper gi bleed COMPARISON: CTA chest 10/25/2019. TECHNIQUE: Thin-section axial CT images are obtained after administration of intravenous contrast media. Reconstructed MPR images are created and reviewed as well. FINDINGS: Tracheostomy tube is stable in positioning terminating 4 cm above the ita. The right chest wall Port-A-Cath terminates within the SVC. Persistent chronic bilateral lower lobes airspace consolidations with air bronchograms. The left lower lobe consolidation appears to be unchanged. The right lower lobe consolidation has increased to involve the majority of the right lower lobe. Additional ground glass airspace infiltrates within the bilateral upper lobes (more pronounced on the right side). No pleural effusion or pneumothorax. The heart is normal in size without pericardial effusion. The great vessels are normal in caliber. Mild reactive subcarinal and hilar lymphadenopathy is similar compared to prior examination. No acute osseous abnormality. Severe glenohumeral joint osteoarthrosis more pronounced on the right. T4 chronic compression deformity is unchanged. T12 minimal superior endplate depression is slightly increased. Partially visualized abdomen demonstrate bilateral nephrolithiasis and percutaneous gastrostomy catheter. IMPRESSION: 1. Redemonstration of chronic bilateral lower lobe consolidations with air bronchograms. The right lower lobe consolidation has slightly increased. Additional airspace infiltrates within the bilateral upper lobes are similar compared to prior examination. 2. No pleural effusion. 3. Other findings as above. This exam was performed according to our departmental dose-optimization program, which includes automated exposure control, adjustment of the mA and/or kV according to patient size and/or use of iterative reconstruction technique. Electronically signed by: Delvin Fong DO 12/11/2019 9:56 AM CDT
[2019-12-11] MEDS ORDERED: PIPERACILLIN/TAZOBACTAM 3.375 GM in SODIUM CHLORIDE 0.9% 100ML 100 ML IVPB ONE (10:10)
--- NOTE | 2019-12-11 10:37 | CT ---
EXAM DESCRIPTION: CT ABDOMEN AND PELVIS WITH CONTRAST CLINICAL HISTORY: upper gi bleed COMPARISON: CT abdomen and pelvis 10/25/2019. TECHNIQUE: CT of the abdomen and pelvis are performed after IV contrast administration. No oral contrast was given. Multiplanar reconstructions were obtained. FINDINGS: A percutaneous gastrostomy tube is present with the balloon catheter in stable position along the lower gastric body greater curvature. No catheter dislodgment. The stomach is unremarkable. No hiatal hernia. The small bowel appears normal. There is constipation with moderate stool burden within the rectum and large bowel. No mechanical bowel obstruction. The liver is normal in contour and enhancement. The gallbladder is unremarkable without calcified gallstone. No biliary ductal dilatation. The spleen is normal in size. The pancreas and adrenals enhance normally. The kidneys are normal in size and contour. Bilateral nonobstructing nephrolithiasis (stones measuring up to 6 mm within the inferior pole of the left kidney) are unchanged. No hydronephrosis. There is no lymphadenopathy, inflammation, or free fluid observed. No free air. A Christensen catheter decompresses the bladder. Small amount gas is present within the bladder. Small layering stones are present within the bladder. The reproductive organs are unremarkable. T12 and L1 superior endplate depression appears to be slightly increased compared to prior examination. 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 The bone mineralization is decreased. IMPRESSION: 1. No acute abdominopelvic process on CT. 2. Bilateral nonobstructing nephrolithiasis and bladder stones. No hydronephrosis. 3. Constipation. 4. Mildly increased T12 and L1 superior endplate depression. This exam was performed according to our departmental dose-optimization program, which includes automated exposure control, adjustment of the mA and/or kV according to patient size and/or use of iterative reconstruction technique. Electronically signed by: Delvin Fong DO 12/11/2019 10:36 AM CDT
[2019-12-11] MEDS ORDERED: DEXAMETHASONE INJ 4 MG/ML VIAL IV ONE (10:47)
[2019-12-11 11:51] VITALS: TEMP 99.4; O2SAT 100
[2019-12-11] MEDS ORDERED: METOPROLOL TARTRATE 25 MG TAB GT ONE (11:59)
[2019-12-11] MEDS ORDERED: METOPROLOL TARTRATE 25 MG TAB ONE (12:00)
[2019-12-11 12:05] VITALS: BP 94/61
== END 2019-12-11 12:10 | disposition short-term general hospital (02) ==
LOC: ER 05:14
DX: J95.851 Ventilator associated pneumonia (principal); T83.511A Infection and inflammatory reaction due to indwelling urethral catheter, initial encounter; N39.0 Urinary tract infection, site not specified; A41.9 Sepsis, unspecified organism; L89.303 Pressure ulcer of unspecified buttock, stage 3; K92.2 Gastrointestinal hemorrhage, unspecified; Z99.11 Dependence on respirator [ventilator] status; R11.2 Nausea with vomiting, unspecified
CPT/HCPCS: 36415; 71260; 74177; 80053; 81001; 82271; 83605; 83986; 85014; 85018; 85025; 85610; 85730; 87040; 87077; 87086; 87635; 94002; 94003; A4216; J1100; J1450; J2060; J2543; J2550; J7030; J7050

== ENCOUNTER 2019-12-17 15:15 | Emergency (ER) | payer OTHER ==
[2019-12-17] MEDS ORDERED: SODIUM CHLORIDE 0.9% (FLUSH) 10 ML SYG IV PRN (15:36)
[2019-12-17] MEDS ORDERED: SODIUM CHLORIDE 0.9% 1000ML 1,000 ML IVS ONE (15:36)
--- NOTE | 2019-12-17 15:54 | ED.PDOC ---
History of Present Illness - General Chief Complaint: Fever Time Seen by Provider: 12/17/19 15:42 Source: RN notes reviewed, Vital Signs reviewed, care home records Exam Limitations: clinical condition - History of Present Illness Timing/Duration: this morning Fever Severity/Quality: greater than 100.5 F Associated Symptoms: cough Review of Systems - Review of Systems Unable to Obtain Due To: intubated Past Medical History (General) - Patient Medical History Hx Seizures: Yes Hx Stroke: No Hx Dementia: No Hx Asthma: No Hx of COPD: No Hx Cardiac Disorders: No Hx Congestive Heart Failure: No Hx Pacemaker: No Hx Hypertension: No Hx Thyroid Disease: No Hx Diabetes: No Hx Gastroesophageal Reflux: No Hx Renal Disease: No Hx Cancer: No Hx of HIV: No Hx Hepatitis C: No Hx MRSA: No - Vaccination History Hx Tetanus, Diphtheria Vaccination: - Unknown Hx Influenza Vaccination: - Unknown Hx Pneumococcal Vaccination: - Unknown - Social History Hx Tobacco Use: - Unknown Hx Chewing Tobacco Use: - Unknown Hx Alcohol Use: - Unknown Hx Substance Use: - Unknown Hx Substance Use Treatment: - Unknown Hx Depression: - Unknown Family Medical History - Family History Mother Family History: Unknown Physical Exam - Physical Exam General Appearance: Frail, Lethargic, Ill Appearing, Other - ventilatedwith trach tube, port R chest ENT Exam: other - tracheostomy Respiratory: crackles Cardiovascular/Chest: regular rate, rhythm, no edema, no murmur, tachycardia Gastrointestinal/Abdominal: normal bowel sounds, soft Extremity: other - contractures to extremities Neurologic: other - nonverbal Skin Exam: warm/dry Progress - EKG/XRAY/CT EKG: Sinus, Tachy, no ST T wave changes Comments: rate 124 Departure - Departure Clinical Impression: Fever in adult Left lower lobe pneumonia Qualifiers: Pneumonia type: due to unspecified organism Qualified Code(s): J18.9 - Pneumonia, unspecified organism Disposition: Discharge to SNF Condition: Poor Departure Forms: ED Discharge - Pt. Copy, Patient Portal Self Enrollment Instructions: DI for Fever (Symptom) -- Adult Referrals: KEITH PAPPAS [Primary Care Provider] - 1-2 Weeks Home Medications: Ambulatory Orders Folic Acid 1 mg PEG DAILY 05/21/19 Lorazepam 1 mg PEG Q4H 05/21/19 Phenytoin Suspension [Dilantin Suspension] 12 ml PEG BID 05/21/19 Acetaminophen [Acetaminophen Extra Stren] 1,000 mg PEG Q12H 10/25/19 Albuterol Sulfate Nebs [Proventil Nebs] 2.5 mg INH Q4H PRN 10/25/19 Cetirizine HCl [Zyrtec Allergy] 10 mg PEG DAILY 10/25/19 Cholestyramine Powder [Questran Powder] 4 gm PEG TID 10/25/19 Cyanocobalamin [B-12] 1,000 mcg PEG DAILY 10/25/19 Dextran 70-Hypromellose [Artificial Tears 0.1-0.3 %] 1 samuel BOTH_EYES Q4H PRN 10/25/19 Ergocalciferol [Vitamin D] 50,000 unit PEG MONTHLY 10/25/19 Gabapentin 100 mg PEG Q8H PRN 10/25/19 Ipratropium/Albuterol [Duoneb] 3 ml NEB Q6H 10/25/19 Metoprolol Tartrate 25 mg PEG Q8H 10/25/19 Pantoprazole Suspension [Protonix] 40 mg PEG DAILY 10/25/19 Gabapentin 100 mg PO 12/11/19 Meropenem [Merrem] 500 mg IV 12/11/19 Nitrofurantoin Macrocrystal [Nitrofurantoin] 100 mg PO 12/11/19 Vancomycin HCl 1 gm IV 12/11/19
--- NOTE | 2019-12-17 16:01 | RAD ---
EXAM DESCRIPTION: Chest,1 View CLINICAL HISTORY: SHORT OF BREATH COMPARISON: 04 December 2019 TECHNIQUE: AP portable chest FINDINGS: An [id number] catheter seen in place on the patient's left. A tracheostomy tube is observed at the level of the thoracic inlet. Mild right basilar interstitial infiltrate is observed. Its improved from the previous exam. The heart is within range of normal. Left basilar atelectasis is noted. It remains essentially unchanged. IMPRESSION: Bilateral basilar infiltrates are observed more pronounced on the left. There is been an interval improvement since the previous exam. Electronically signed by: Morris Sy MD 12/17/2019 3:59 PM CDT
[2019-12-17] MEDS ORDERED: ACETAMINOPHEN IV 1000MG 1,000 MG in PREMIX BOTTLE 1 BOTTLE IVPB ONE (16:38)
[2019-12-17 19:56] VITALS: BP 120/79; TEMP 99; O2SAT 96
== END 2019-12-17 19:59 ==
LOC: ER 15:15
DX: J18.9 Pneumonia, unspecified organism (principal); R00.0 Tachycardia, unspecified; Z99.11 Dependence on respirator [ventilator] status; R56.9 Unspecified convulsions; Z79.899 Other long term (current) drug therapy
CPT/HCPCS: 36415; 71045; 80053; 81001; 82550; 82553; 83605; 84484; 85025; 85610; 85730; 87040; 87086; 87635; 93005; 94002; J7030

== ENCOUNTER 2020-01-02 13:33 | Emergency (ER) | payer OTHER ==
[2020-01-02] MEDS ORDERED: cefTRIAXone SODIUM 2 GM in SODIUM CHL 0.9% 100ML MINI-BAG 100 ML IVPB ONE (14:00)
[2020-01-02] MEDS ORDERED: SODIUM CHLORIDE 0.9% (FLUSH) 10 ML SYG IV PRN (14:00)
[2020-01-02] MEDS ORDERED: SODIUM CHLORIDE 0.9% 1000ML 1,000 ML IVS ONE ×2 (14:00→15:42)
[2020-01-02] MEDS ORDERED: ACETAMINOPHEN IV 1000MG 1,000 MG in PREMIX BOTTLE 1 BOTTLE IVPB ONE (14:01)
[2020-01-02] MEDS ORDERED: VANCOMYCIN HCL INJ 1,000 MG, VANCOMYCIN HCL INJ 500 MG in SODIUM CHLORIDE 0.9% 250ML 25... IVPB ONE (14:24)
--- NOTE | 2020-01-02 14:37 | RAD ---
EXAM DESCRIPTION: Chest,1 View x-ray CLINICAL HISTORY: 44 years Male, Fever, tachycardia, possible pneumonia COMPARISON: 12/17/2019 IMPRESSION: A tracheostomy tube and right chest wall port catheter again demonstrated. Increased multifocal bilateral airspace opacities, greatest in the periphery of the right lung and to a lesser extent left upper lung. The findings are concerning for worsening multifocal pneumonia, including Covid 19. No large pleural effusion or pneumothorax. No acute osseous abnormality. Electronically signed by: Krish Crane MD 01/02/2020 2:35 PM CDT
[2020-01-02] MEDS ORDERED: MEROPENEM 1 GM in SODIUM CHL 0.9% 50ML MIN-BAG+ 50 ML IVPB ONE (15:50)
[2020-01-02] MEDS ORDERED: levoFLOXacin 750MG IV 750 MG in PREMIX BAG 1 BAG IVPB ONE (15:50)
--- NOTE | 2020-01-02 15:56 | ED.PDOC ---
History of Present Illness - General Chief Complaint: Fever Stated Complaint: Fever, tachycardia Time Seen by Provider: 01/02/20 14:00 Source: RN notes reviewed, Vital Signs reviewed, EMS notes reviewed, jail records, old records Exam Limitations: physical impairment, other - Tracheostomy and vent dependent, nonverbal - History of Present Illness Initial Comments: This is a 44-year-old male presenting from local jail with fever and tachycardia. He has longstanding history of TBI, is bedbound, nonverbal, chronic seizure disorder, vent and trach dependent. He has had multiple admissions in the past year for VAP. He recently finished a round of antibiotics. Patient is nonverbal and nonresponsive, unable to give clear history. All history was obtained from EMS and old records.Patient is a full code Allergies/Adverse Reactions: Allergies NO KNOWN ALLERGY Allergy (Verified 01/02/20 13:47) Home Medications: Ambulatory Orders Folic Acid 1 mg PEG DAILY 05/21/19 Lorazepam 1 mg PEG Q4H 05/21/19 Phenytoin Suspension [Dilantin Suspension] 12 ml PEG BID 05/21/19 Acetaminophen [Acetaminophen Extra Stren] 1,000 mg PEG Q12H 10/25/19 Albuterol Sulfate Nebs [Proventil Nebs] 2.5 mg INH Q4H PRN 10/25/19 Cetirizine HCl [Zyrtec Allergy] 10 mg PEG DAILY 10/25/19 Cholestyramine Powder [Questran Powder] 4 gm PEG TID 10/25/19 Cyanocobalamin [B-12] 1,000 mcg PEG DAILY 10/25/19 Dextran 70-Hypromellose [Artificial Tears 0.1-0.3 %] 1 samuel BOTH_EYES Q4H PRN 10/25/19 Ergocalciferol [Vitamin D] 50,000 unit PEG MONTHLY 10/25/19 Gabapentin 100 mg PEG Q8H PRN 10/25/19 Ipratropium/Albuterol [Duoneb] 3 ml NEB Q6H 10/25/19 Metoprolol Tartrate 25 mg PEG Q8H 10/25/19 Pantoprazole Suspension [Protonix] 40 mg PEG DAILY 10/25/19 Gabapentin 100 mg PO 12/11/19 Meropenem [Merrem] 500 mg IV 12/11/19 Nitrofurantoin Macrocrystal [Nitrofurantoin] 100 mg PO 12/11/19 Review of Systems - Review of Systems Unable to Obtain Due To: intubated, clinical condition Past Medical History (General) - Patient Medical History Hx Seizures: Yes Hx Stroke: No Hx Dementia: No Hx Asthma: No Hx of COPD: No Hx Cardiac Disorders: No Hx Congestive Heart Failure: No Hx Pacemaker: No Hx Hypertension: No Hx Thyroid Disease: No Hx Diabetes: No Hx Gastroesophageal Reflux: No Hx Renal Disease: No Hx Cancer: No Hx of HIV: No Hx Hepatitis C: No Hx MRSA: No - Vaccination History Hx Tetanus, Diphtheria Vaccination: - Unknown Hx Influenza Vaccination: Yes Hx Pneumococcal Vaccination: Yes - Social History Hx Tobacco Use: No - Unknown Hx Chewing Tobacco Use: - Unknown Hx Alcohol Use: Yes - Unknown Hx Substance Use: Yes - Unknown Hx Substance Use Treatment: - Unknown Hx Depression: - Unknown - Activities of Daily Living Jail/Assisted Living (if applicable):: [facility] Agency (if applicable):: None - Female History Patient is a Female of Child Bearing Age (10 -59 yrs old): No Family Medical History - Family History Mother Family History: Unknown Physical Exam - Physical Exam General Appearance: Frail, Ill Appearing, Other Ears, Nose, Throat: other - Tracheostomy in place, stoma site appears clean dry and intact. Neck: non-tender, supple Respiratory: chest non-tender, other - Patient is tachypneic, crackles in the right base Cardiovascular/Chest: normal peripheral pulses, regular rate, rhythm, no edema, no JVD, tachycardia Peripheral Pulses: radial,right: 2+, radial,left: 2+ Gastrointestinal/Abdominal: non tender, soft Neurologic: aphasia, other - Withdraws to painful stimuli, no verbal response, no eye-opening Skin Exam: normal color, warm/dry Progress - Progress Progress: 01/02/20 14:05 I suspect severe sepsis at this time 01/02/20 14:25 Old records reviewed. Multiple previous ED visits and admissions for valve in the past year. He has been on Vanc and meropenem in the past and tolerated those. He also has chronic fungal UTI. has declined to place an advanced directive or DNR order. She requested keep him full code 01/02/20 15:59 Sepsis recheck completed. Remains tachycardic, cap refill < 3 seconds. 01/02/20 16:[address] Mccullough, ER physician at [facility] in [place]. Will accept as transfer. Discussed lab, x-ray, EKG findings as well as vital signs. 01/02/20 16:55 Rechecked. Patient appears somewhat more alert, he is blinking his eyes to voice and tracking with his eyes. Discussed plan for transfer. DDX: Severe sepsis, septic shock, acute on chronic respiratory failure, pneumonia, PE, COVID-19 MDM: Patient presenting with fever, tachypnea, tachycardia, leukocytosis with 13% bandemia. He has chronic respiratory failure and is trach and vent dependent. He meets severe sepsis criteria, blood pressures have been stable, not consistent with septic shock at this time. Due to his high degree of respira tory care and likely need for pulmonology and ICU management, will need transfer. He was given vancomycin, Rocephin, Levaquin in the emergency department. Blood cultures pending, sputum cultures pending. Patient is a full code. Chintan Craven DO [facility] #[id number] - Results/Orders Results/Orders: EXAM DESCRIPTION: Chest,1 View x-ray CLINICAL HISTORY: 44 years Male, Fever, tachycardia, possible pneumonia COMPARISON: 12/17/2019 IMPRESSION: A tracheostomy tube and right chest wall port catheter again demonstrated. Increased multifocal bilateral airspace opacities, greatest in the periphery of the right lung and to a lesser extent left upper lung. The findings are concerning for worsening multifocal pneumonia, including Covid 19. No large pleural effusion or pneumothorax. No acute osseous abnormality. Electronically signed by: Krish Crane MD 01/02/2020 2:35 PM CDT Initial EKG interpreted by me at 1344. Sinus tach, rate of 157, normal axis, normal intervals, no ST segment elevations or depression 01/02/20 14:00 Sodium Chloride 0.9% (Flush) [Saline Flush Syringe] 10 ml IV PRN PRN EKG Stat Pulse Ox Stat 01/02/20 14:24 Vancomycin HCl Inj 1,000 mg Vancomycin HCl Inj 500 mg Sodium Chloride 0.9% 250Ml [NS 250ml] 250 ml IVPB ONCE EKG Assessment ONCE 01/02/20 14:25 BLOOD CULTURE Stat Mechanical Ventilation DAILY 01/02/20 14:30 EKG STAT 01/02/20 14:57 RESPIRATORY PANEL 2 Stat 01/02/20 15:11 URINE CULTURE W/COLONY COUNT Stat 01/02/20 15:39 SPUTUM CULTURE Stat 01/02/20 15:42 Sodium Chloride 0.9% 1000ML [Ns 1000 ml] 1,000 ml IVS ONCE 01/02/20 15:50 Meropenem [Merrem] 1 gm Sodium Chl 0.9% 50Ml Min-Bag+ [NS 50ml MINI-BAG+] 50 ml IVPB ONCE levoFLOXacin 750MG IV [Levaquin 750MG IV] 750 mg Premix Bag 1 bag IVPB ONCE 01/02/20 16:00 LACTIC ACID Q2H Laboratory Results - last 24 hr 01/02/20 01/02/20 01/02/20 14:00 14:25 14:25 WBC RBC Hgb Hct MCV MCH MCHC RDW Plt Count MPV Absolute Neuts (auto) Absolute Lymphs (auto) Absolute Monos (auto) Absolute Eos (auto) Absolute Basos (auto) Neutrophils % Neutrophils % (Manual) Lymphocytes % Lymphocytes % (Manual) Monocytes % Monocytes % (Manual) Eosinophils % Basophils % Band Neutrophils Metamyelocytes Hypochromia Platelet Estimate Polychromasia Poikilocytosis Anisocytosis PT INR PTT (SP) pCO2 42 pO2 72 L HCO3 31.1 ABG pH 7.476 H ABG O2 Saturation 95.8 ABG Base Excess 6.8 ABG Deoxyhemoglobin 4.1 Oxyhemoglobin % 94.5 Carboxyhemoglobin % 0.9 Methemoglobin % Sat 0.5 Calc Total Hemoglobin 10.8 L Sodium 134 L Potassium 3.9 Chloride 95 L Carbon Dioxide 29 Anion Gap 13.9 BUN 18 Creatinine < 0.40 L BUN/Creatinine Ratio 45.0 H Random Glucose 115 H Serum Osmolality 271.1 L Lactic Acid 1.3 Calcium 8.8 Total Bilirubin 0.2 AST 21 ALT 29 Alkaline Phosphatase 190 H Creatine Kinase 186 H CK-MB (CK-2) 3.8 CK-MB (CK-2) % 2.04 Troponin I < 0.02 Serum Total Protein 8.8 H Albumin 2.8 L Globulin 6.0 H Albumin/Globulin Ratio 0.5 L Urine Color Urine Appearance Urine pH Ur Specific [place] Urine Protein Urine Glucose (UA) Urine Ketones Urine Blood Urine Nitrite Urine Bilirubin Urine Urobilinogen Ur Leukocyte Esterase Urine RBC Urine WBC Ur Epithelial Cells Amorphous Sediment Urine Bacteria Urine Mucus Urine Yeast Phenytoin 01/02/20 01/02/20 01/02/20 14:25 14:25 14:33 WBC 22.1 H* RBC 4.10 L Hgb 10.5 L Hct 32.9 L MCV 80.2 MCH 25.6 L MCHC 31.9 L RDW 17.9 H Plt Count 436 H MPV 7.9 Absolute Neuts (auto) 18.60 H Absolute Lymphs (auto) 1.60 Absolute Monos (auto) 1.70 H Absolute Eos (auto) 0.10 Absolute Basos (auto) 0.10 Neutrophils % 84.5 H Neutrophils % (Manual) 76.0 Lymphocytes % 7.0 L Lymphocytes % (Manual) 7.0 Monocytes % 7.6 Monocytes % (Manual) 3.0 Eosinophils % 0.6 L Basophils % 0.3 Band Neutrophils 13.0 H* Metamyelocytes 1.0 H Hypochromia 1+ Platelet Estimate Normal Polychromasia 2+ Poikilocytosis 1+ Anisocytosis 2+ PT 10.5 INR 1.06 PTT (SP) 27.6 pCO2 pO2 HCO3 ABG pH ABG O2 Saturation ABG Base Excess ABG Deoxyhemoglobin Oxyhemoglobin % Carboxyhemoglobin % Methemoglobin % Sat Calc Total Hemoglobin Sodium Potassium Chloride Carbon Dioxide Anion Gap BUN Creatinine BUN/Creatinine Ratio Random Glucose Serum Osmolality Lactic Acid Calcium Total Bilirubin AST ALT Alkaline Phosphatase Creatine Kinase CK-MB (CK-2) CK-MB (CK-2) % Troponin I Serum Total Protein Albumin Globulin Albumin/Globulin Ratio Urine Color Urine Appearance Urine pH Ur Specific [place] Urine Protein Urine Glucose (UA) Urine Ketones Urine Blood Urine Nitrite Urine Bilirubin Urine Urobilinogen Ur Leukocyte Esterase Urine RBC Urine WBC Ur Epithelial Cells Amorphous Sediment Urine Bacteria Urine Mucus Urine Yeast Phenytoin 5.8 L 01/02/20 15:11 WBC RBC Hgb Hct MCV MCH MCHC RDW Plt Count MPV Absolute Neuts (auto) Absolute Lymphs (auto) Absolute Monos (auto) Absolute Eos (auto) Absolute Basos (auto) Neutrophils % Neutrophils % (Manual) Lymphocytes % Lymphocytes % (Manual) Monocytes % Monocytes % (Manual) Eosinophils % Basophils % Band Neutrophils Metamyelocytes Hypochromia Platelet Estimate Polychromasia Poikilocytosis Anisocytosis PT INR PTT (SP) pCO2 pO2 HCO3 ABG pH ABG O2 Saturation ABG Base Excess ABG Deoxyhemoglobin Oxyhemoglobin % Carboxyhemoglobin % Methemoglobin % Sat Calc Total Hemoglobin Sodium Potassium Chloride Carbon Dioxide Anion Gap BUN Creatinine BUN/Creatinine Ratio Random Glucose Serum Osmolality Lactic Acid Calcium Total Bilirubin AST ALT Alkaline Phosphatase Creatine Kinase CK-MB (CK-2) CK-MB (CK-2) % Troponin I Serum Total Protein Albumin Globulin Albumin/Globulin Ratio Urine Color Yellow Urine Appearance Cloudy Urine pH 7.5 Ur Specific [place] 1.020 Urine Protein 30 Urine Glucose (UA) Negative Urine Ketones Negative Urine Blood Moderate H Urine Nitrite Negative Urine Bilirubin Negative Urine Urobilinogen 0.2 Ur Leukocyte Esterase Moderate H Urine RBC 3-5 H Urine WBC Tntc H Ur Epithelial Cells 0 Amorphous Sediment 2+ Urine Bacteria 2+ H Urine Mucus Trace Urine Yeast 3+ budding Phenytoin - EKG/XRAY/CT CT Ordered: No CT Interpretation Call Back: No Departure - Departure Clinical Impression: Severe sepsis without septic shock, Ventilator associated pneumonia, Fungal colonization of urinary tract, Subtherapeutic phenytoin level Time of Disposition: 16:57 Disposition: Transfer to Hospital Condition: Fair Departure Forms: ED Discharge - Pt. Copy, Patient Portal Self Enrollment Referrals: KEITH PAPPAS [Primary Care Provider] - 1-2 Weeks Home Medications: Ambulatory Orders Folic Acid 1 mg PEG DAILY 05/21/19 Lorazepam 1 mg PEG Q4H 05/21/19 Phenytoin Suspension [Dilantin Suspension] 12 ml PEG BID 05/21/19 Acetaminophen [Acetaminophen Extra Stren] 1,000 mg PEG Q12H 10/25/19 Albuterol Sulfate Nebs [Proventil Nebs] 2.5 mg INH Q4H PRN 10/25/19 Cetirizine HCl [Zyrtec Allergy] 10 mg PEG DAILY 10/25/19 Cholestyramine Powder [Questran Powder] 4 gm PEG TID 10/25/19 Cyanocobalamin [B-12] 1,000 mcg PEG DAILY 10/25/19 Dextran 70-Hypromellose [Artificial Tears 0.1-0.3 %] 1 samuel BOTH_EYES Q4H PRN 10/25/19 Ergocalciferol [Vitamin D] 50,000 unit PEG MONTHLY 10/25/19 Gabapentin 100 mg PEG Q8H PRN 10/25/19 Ipratropium/Albuterol [Duoneb] 3 ml NEB Q6H 10/25/19 Metoprolol Tartrate 25 mg PEG Q8H 10/25/19 Pantoprazole Suspension [Protonix] 40 mg PEG DAILY 10/25/19 Gabapentin 100 mg PO 12/11/19 Meropenem [Merrem] 500 mg IV 12/11/19 Nitrofurantoin Macrocrystal [Nitrofurantoin] 100 mg PO 12/11/19 Critical Care Note - Critical Care Note Total Time (mins): 42 Comments: Patient with evidence of severe sepsis with leukocytosis, tachycardia, fever and bandemia of 13%. Patient at risk for sepsis, shock, respiratory failure. Time was spent reviewing old hospital records, examining patient, reviewing labs, documentation, rechecks, discussions with other providers, reassessments, review of jail records Transfer to Outside Facility - Transfer Information Decision to Transfer Date: 01/02/20 Decision to Transfer Time: 16:59 Reason for Transfer: specialized care not available Accepting Facility: [facility]
[2020-01-02 17:18] VITALS: TEMP 101.7
[2020-01-02 17:55] VITALS: BP 114/68; O2SAT 92
== END 2020-01-02 17:55 | disposition short-term general hospital (02) ==
LOC: ER 13:33
DX: R65.21 Severe sepsis with septic shock (principal); J95.851 Ventilator associated pneumonia; N39.0 Urinary tract infection, site not specified; B49 Unspecified mycosis; R89.2 Abnormal level of other drugs, medicaments and biological substances in specimens from other organs, systems and tissues; R00.0 Tachycardia, unspecified; G40.909 Epilepsy, unspecified, not intractable, without status epilepticus; Z79.899 Other long term (current) drug therapy; Z87.820 Personal history of traumatic brain injury; Z99.11 Dependence on respirator [ventilator] status
CPT/HCPCS: 36415; 36600; 71045; 80053; 80185; 81001; 82550; 82553; 82803; 82805; 83605; 84484; 85025; 85610; 85730; 87040; 87070; 87086; 87635; 93005; 94002; 94760; J0696; J1956; J2185; J3370; J7030; J7050

== ENCOUNTER 2020-02-24 04:19 | Emergency (ER) | payer OTHER ==
--- NOTE | 2020-02-24 05:32 | RAD ---
EXAM DESCRIPTION: Chest,1 View CLINICAL HISTORY: low O2 sats COMPARISON: 01/14/2020 FINDINGS: Single frontal view of the chest. Tubes and lines: Tracheostomy in place. Right IJ Mediport with tip in the SVC. Leads overlie the chest. Cardiomediastinal silhouette: Heart is not enlarged. Lungs: No pneumothorax or large effusion. Bibasilar opacities and scattered right lung interstitial opacity. Bones: Stable. Upper abdomen: Stable. IMPRESSION: 1. Stable right lung interstitial opacity and bibasilar airspace opacities. These findings may represent residual or recurrent pneumonia. Electronically signed by: Petey Melgar 02/24/2020 5:30 AM CDT
[2020-02-24] MEDS ORDERED: SODIUM CHLORIDE 0.9% 1000ML 1,000 ML IVS ONE ×2 (05:33→06:48)
[2020-02-24] MEDS ORDERED: SODIUM CHLORIDE 0.9% 1000ML 1,000 ML ONE ×2 (05:33→06:48)
[2020-02-24] MEDS ORDERED: levoFLOXacin 750MG IV 750 MG in PREMIX BAG 1 BAG IVPB ONE (06:26)
--- NOTE | 2020-02-24 06:29 | ED.PDOC ---
History of Present Illness - General Chief Complaint: Blood Pressure Problem Stated Complaint: high blood pressure, high HR Time Seen by Provider: 02/24/20 06:18 Source: RN notes reviewed, Vital Signs reviewed, EMS notes reviewed Exam Limitations: clinical condition - Pt is a vent pt. He is non communicative. - History of Present Illness Initial Comments: Patient is a 44-year-old black male who presents from the local longterm with complaints of hypotension and tachycardia. Patient was here both ago for the same and was found to have pneumonia. The symptoms started this evening. Timing/Duration: 4-6 hours Severity: moderate Improving Factors: nothing Worsening Factors: nothing Associated Symptoms: cough Allergies/Adverse Reactions: Allergies NO KNOWN ALLERGY Allergy (Verified 02/24/20 04:52) Home Medications: Ambulatory Orders Folic Acid 1 mg PEG DAILY 05/21/19 Lorazepam 1 mg PEG Q4H 05/21/19 Phenytoin Suspension [Dilantin Suspension] 12 ml PEG BID 05/21/19 Acetaminophen [Acetaminophen Extra Stren] 1,000 mg PEG Q12H 10/25/19 Albuterol Sulfate Nebs [Proventil Nebs] 2.5 mg INH Q4H PRN 10/25/19 Cetirizine HCl [Zyrtec Allergy] 10 mg PEG DAILY 10/25/19 Cholestyramine Powder [Questran Powder] 4 gm PEG TID 10/25/19 Cyanocobalamin [B-12] 1,000 mcg PEG DAILY 10/25/19 Dextran 70-Hypromellose [Artificial Tears 0.1-0.3 %] 1 samuel BOTH_EYES Q4H PRN 10/25/19 Ergocalciferol [Vitamin D] 50,000 unit PEG MONTHLY 10/25/19 Gabapentin 100 mg PEG Q8H PRN 10/25/19 Ipratropium/Albuterol [Duoneb] 3 ml NEB Q6H 10/25/19 Metoprolol Tartrate 25 mg PEG Q8H 20 Pantoprazole Suspension [Protonix] 40 mg PEG DAILY 10/25/19 Gabapentin 100 mg PO 12/11/19 Meropenem [Merrem] 500 mg IV 12/11/19 Nitrofurantoin Macrocrystal [Nitrofurantoin] 100 mg PO 12/11/19 Review of Systems - Review of Systems Constitutional: States: no symptoms reported, see HPI. Denies: chills, fever, malaise, weakness Respiratory: States: see HPI, cough. Denies: stridor, wheezing Unable to Obtain Due To: clinical condition - pt is a vent pt and non communicative Past Medical History (General) - Patient Medical History Hx Seizures: Yes Hx Stroke: No Hx Dementia: No Hx Asthma: No Hx of COPD: No Hx Cardiac Disorders: No Hx Congestive Heart Failure: No Hx Pacemaker: No Hx Hypertension: Yes Hx Thyroid Disease: No Hx Diabetes: No Hx Gastroesophageal Reflux: No Hx Renal Disease: No Hx Cancer: No Hx of HIV: No Hx Hepatitis C: No Hx MRSA: No Surgical History: noncontributory - Vaccination History Hx Tetanus, Diphtheria Vaccination: - Unknown Hx Influenza Vaccination: Yes Hx Pneumococcal Vaccination: Yes - Social History Hx Tobacco Use: No - Unknown Hx Chewing Tobacco Use: - Unknown Hx Alcohol Use: Yes - per GO chart Hx Substance Use: No - Unknown Hx Substance Use Treatment: No - Unknown Hx Depression: No - Unknown - Activities of Daily Living [facility] (if applicable):: [facility] - Female History Patient : No Family Medical History - Family History Mother Family History: Unknown Physical Exam - Physical Exam General Appearance: Obvious distress, Ill Appearing, Well Developed, Well Hydrated, Well Nourished Eye Exam: bilateral normal Ears, Nose, Throat: hearing grossly normal - pt opens eyes to loud voice, normal pharynx Neck: non-tender, full range of motion, supple, other - trach in place. Respiratory: chest non-tender, no accessory muscle use, respiratory distress - mild, decreased breath sounds - right, rales - right lung diffusely Cardiovascular/Chest: normal peripheral pulses, no gallop, no murmur, tachycardia Peripheral Pulses: radial,right: 2+, radial,left: 2+ Gastrointestinal/Abdominal: normal bowel sounds, soft, no organomegaly Back Exam: normal inspection, no vertebral tenderness Extremity: normal capillary refill, other - pt with ue//e contractures. Neurologic: other - pt awakens to stimulis. Localizes pain. Pt is non verbal Skin Exam: other - cool and dry to touch Lymphatic: no adenopathy Progress - Results/Orders Results/Orders: EXAM DESCRIPTION: Chest,1 View CLINICAL HISTORY: low O2 sats COMPARISON: 01/14/2020 FINDINGS: Single frontal view of the chest. Tubes and lines: Tracheostomy in place. Right IJ Mediport with tip in the SVC. Leads overlie the chest. Cardiomediastinal silhouette: Heart is not enlarged. Lungs: No pneumothorax or large effusion. Bibasilar opacities and scattered right lung interstitial opacity. Bones: Stable. Upper abdomen: Stable. IMPRESSION: 1. Stable right lung interstitial opacity and bibasilar airspace opacities. These findings may represent residual or recurrent pneumonia. Electronically signed by: Petey Melgar 02/24/2020 5:30 AM EKG performed on 24 February 2020 at 0428 hrs.: Sinus tachycardia 153 bpm, normal axis deviation, no ST or T wave changes concerning for ischemia, abnormal EKG. No comparison EKG available at this time. 02/24/20 04:20 Capnography .ONCE Mechanical Ventilation DAILY 02/24/20 04:30 EKG STAT 02/24/20 05:15 RESPIRATORY PANEL 2 Stat URINE CULTURE W/COLONY COUNT Stat 02/24/20 05:38 BLOOD CULTURE Stat 02/24/20 06:26 levoFLOXacin 750MG IV [Levaquin 750MG IV] 750 mg Premix Bag 1 bag IVPB ONCE Laboratory Results - last 24 hr 02/24/20 02/24/20 02/24/20 04:57 04:57 04:57 WBC 41.8 H* RBC 4.76 Hgb 11.5 L Hct 35.9 L MCV 75.4 L MCH 24.1 L MCHC 32.0 L RDW 19.4 H Plt Count 610 H MPV 7.9 Absolute Neuts (auto) 38.00 H Absolute Lymphs (auto) 1.40 Absolute Monos (auto) 2.30 H Absolute Eos (auto) 0.00 Absolute Basos (auto) 0.10 Neutrophils % 90.8 H Neutrophils % (Manual) 83.0 H Lymphocytes % 3.4 L Lymphocytes % (Manual) 4.0 Monocytes % 5.5 Monocytes % (Manual) 5.0 Eosinophils % 0.1 L Basophils % 0.2 Band Neutrophils 8.0 H Platelet Estimate Increased Normal RBC Morphology 1+ovalocytes Sodium 135 Potassium 3.8 Chloride 94 L Carbon Dioxide 29 Anion Gap 15.8 BUN 34 H Creatinine 0.42 L BUN/Creatinine Ratio 81.0 H Random Glucose 162 H Serum Osmolality 281.2 Lactic Acid 2.1 Calcium 9.4 Total Bilirubin 0.2 AST 28 ALT 34 Alkaline Phosphatase 183 H Serum Total Protein 8.8 H Albumin 2.4 L Globulin 6.4 H Albumin/Globulin Ratio 0.4 L Urine Color Urine Appearance Urine pH Ur Specific [place] Urine Protein Urine Glucose (UA) Urine Ketones Urine Blood Urine Nitrite Urine Bilirubin Urine Urobilinogen Ur Leukocyte Esterase Urine RBC Urine WBC Ur Epithelial Cells Urine Bacteria Urine Yeast 02/24/20 05:15 WBC RBC Hgb Hct MCV MCH MCHC RDW Plt Count MPV Absolute Neuts (auto) Absolute Lymphs (auto) Absolute Monos (auto) Absolute Eos (auto) Absolute Basos (auto) Neutrophils % Neutrophils % (Manual) Lymphocytes % Lymphocytes % (Manual) Monocytes % Monocytes % (Manual) Eosinophils % Basophils % Band Neutrophils Platelet Estimate Normal RBC Morphology Sodium Potassium Chloride Carbon Dioxide Anion Gap BUN Creatinine BUN/Creatinine Ratio Random Glucose Serum Osmolality Lactic Acid Calcium Total Bilirubin AST ALT Alkaline Phosphatase Serum Total Protein Albumin Globulin Albumin/Globulin Ratio Urine Color Yellow Urine Appearance Clear Urine pH 7.5 Ur Specific [place] 1.015 Urine Protein Negative Urine Glucose (UA) Negative Urine Ketones Negative Urine Blood Trace-intact H Urine Nitrite Negative Urine Bilirubin Negative Urine Urobilinogen 0.2 Ur Leukocyte Esterase Moderate H Urine RBC 1-3 Urine WBC 5-10 H Ur Epithelial Cells 0 Urine Bacteria Rare Urine Yeast 3+ budding Vital Signs 02/24/20 02/24/20 02/24/20 04:20 04:34 05:00 Temperature 97.9 F Pulse Rate [ 130 H 138 H monitor] Respiratory 22 22 Rate Respiratory 38 H 35 H Rate [Volume Control Data] Blood Pressure 103/77 90/60 [Right Arm] O2 Sat by Pulse 99 99 Oximetry 02/24/20 02/24/20 02/24/20 05:07 06:00 06:30 Temperature 97.9 F Pulse Rate [ 134 H 132 H monitor] Respiratory 22 22 Rate Respiratory 39 H Rate [Volume Control Data] Blood Pressure 103/60 93/74 [Right Arm] O2 Sat by Pulse 100 100 Oximetry Departure - Departure Clinical Impression: Dehydration Pneumonia Qualifiers: Pneumonia type: due to unspecified organism Laterality: right Lung location: unspecified part of lung Qualified Code(s): J18.9 - Pneumonia, unspecified organism Sepsis Qualifiers: Sepsis type: sepsis due to unspecified organism Sepsis acute organ dysfunction status: without acute organ dysfunction Qualified Code(s): A41.9 - Sepsis, unspecified organism Time of Disposition: 06:38 Disposition: Transfer to Hospital Condition: Serious Departure Forms: ED Discharge - Pt. Copy, Patient Portal Self Enrollment Instructions: DI for High Blood Pressure Referrals: KEITH PAPPAS [Primary Care Provider] - 1-2 Weeks Home Medications: Ambulatory Orders Folic Acid 1 mg PEG DAILY 05/21/19 Lorazepam 1 mg PEG Q4H 05/21/19 Phenytoin Suspension [Dilantin Suspension] 12 ml PEG BID 05/21/19 Acetaminophen [Acetaminophen Extra Stren] 1,000 mg PEG Q12H 10/25/19 Albuterol Sulfate Nebs [Proventil Nebs] 2.5 mg INH Q4H PRN 10/25/19 Cetirizine HCl [Zyrtec Allergy] 10 mg PEG DAILY 10/25/19 Cholestyramine Powder [Questran Powder] 4 gm PEG TID 10/25/19 Cyanocobalamin [B-12] 1,000 mcg PEG DAILY 10/25/19 Dextran 70-Hypromellose [Artificial Tears 0.1-0.3 %] 1 samuel BOTH_EYES Q4H PRN 10/25/19 Ergocalciferol [Vitamin D] 50,000 unit PEG MONTHLY 10/25/19 Gabapentin 100 mg PEG Q8H PRN 10/25/19 Ipratropium/Albuterol [Duoneb] 3 ml NEB Q6H 10/25/19 Metoprolol Tartrate 25 mg PEG Q8H 10/25/19 Pantoprazole Suspension [Protonix] 40 mg PEG DAILY 10/25/19 Gabapentin 100 mg PO 12/11/19 Meropenem [Merrem] 500 mg IV 12/11/19 Nitrofurantoin Macrocrystal [Nitrofurantoin] 100 mg PO 12/11/19 Critical Care Note - Critical Care Note Total Time (mins): 45 Transfer to Outside Facility - Transfer Information Decision to Transfer Date: 02/24/20 Decision to Transfer Time: 06:00 Reason for Transfer: specialized care not available Accepting Provider:: Dr. Mccullough Accepting Facility: [facility]
[2020-02-24 08:21] VITALS: BP 92/57; TEMP 96.8; O2SAT 98
== END 2020-02-24 08:21 | disposition short-term general hospital (02) ==
LOC: ER 04:19
DX: A41.9 Sepsis, unspecified organism (principal); J18.9 Pneumonia, unspecified organism; E86.0 Dehydration; R00.0 Tachycardia, unspecified; I10 Essential (primary) hypertension; R56.9 Unspecified convulsions; Z93.0 Tracheostomy status; Z99.11 Dependence on respirator [ventilator] status; Z79.899 Other long term (current) drug therapy
CPT/HCPCS: 36415; 71045; 80053; 81001; 83605; 85025; 87040; 87086; 87635; 93005; 94002; J1956; J7030